=== PATIENT | female | born 1980 | race Two or more races ===

== ENCOUNTER 2024-11-25 22:25 | Emergency (ER) | payer OTHER, SELFPAY ==
--- NOTE | 2024-11-25 22:28 | PD.EDADULT ---
ED General RME/HPI General Chief complaint: General Adult/Misc Complain Stated complaint: J TUBE NOT FUNCTIONING Time Seen by Provider: 11/25/24 22:27 Arrival date/time: 11/25/24 22:25 RME / HPI RME / HPI narrative: 44-year-old female patient with history of congenital pyloric stenosis, hiatal hernia, n.p.o., on J-tube feeding, came in for nonfunctioning J-tube. Patient also had gastric tube for draining purposes. According to the EMS, patient j-tube start not working few hours ago. Patient is denying any complaints. Procedure was done in [facility]. Related Data Allergies Allergy/AdvReac Type Severity Reaction Status Date / Time No Known Allergies Allergy Verified 11/25/24 22:58 Review of Systems Review of Systems Narrative Review of Systems: Review of system reviewed and within normal limits except mentioned in HPI ED Exam Narrative Physical exam: VITAL SIGNS: Reviewed. GENERAL APPEARANCE: Alert and interactive, follows commands, no acute distress, HEAD AND FACE: Non-traumatic. ENT: PERRL, pink conjunctivitis, eyelid no trauma, Mucous membrane moist. NECK: Supple, nontender, no nuchal rigidity. CHEST: No tenderness, no crepitus, no paradoxical movement, no retractions. LUNGS: Clear, well ventilated, symmetric, no rales, no wheezing, no ronchi, no stridor, good breath sounds bilaterally. HEART: Regular rate, regular rhythm, no murmur, no gallops. ABDOMEN: Soft, positive bowel sounds, nondistended, no guarding, G/J-tube intact, nonfunctioning J tube , no rebound, no masses, RECTAL: Deferred. GENITAL: Deferred. NEUROLOGICAL: Gross motor function intact sensory function intact, Appropriate for age. MUSCULOSKELETAL: low back nontender, full range of motion. EXTREMITIES: Nontender, full range of motion. SKIN: Color pink, dry, no rash, no lacerations, no abrasions, no contusions. LYMPHATICS: Deferred. Course Quality Measures none Orders Category Date Time Status CBC [CBC] Stat Lab 11/25/24 23:04 Ordered CMP [Comprehensive Metabolic Panel] Stat Lab 11/25/24 23:04 Ordered PTT [Partial Thromboplastin Time] Stat Lab 11/25/24 23:04 Ordered Dextrose 5%-0.45% Ns [D5-1/2Ns] 1,000 ml Med 11/25/24 23:05 Ordered IV 125 mls/hr Vital Signs Vital signs: Vital Signs Temperature 98.5 F 11/25/24 22:45 Pulse Rate 116 H 11/25/24 22:45 Respiratory Rate 18 11/25/24 22:45 Blood Pressure 107/78 11/25/24 22:45 Pulse Oximetry (%) 99 11/25/24 22:45 Oxygen Delivery Method Room Air 11/25/24 22:45 MDM Patient data External records reviewed:: None Clinical information provided by:: patient and EMS Social determinants that could affect healthcare access:: none Patient has the following chronic illnesses:: Continual pyloric stenosis, hiatal hernia, n.p.o. How is presenting disease/condition affected by chronic disease/condition?: exacerbated by Evaluation data The following diagnostics were reviewed and interpreted by me:: lab results Lab and/or radiology exams considered but not ordered:: None Interpretation Summary: Pending results Medications Medications considered but not ordered:: None Medication administrations:: Medication Administration History Dextrose/Sodium Chloride (D5-1/2ns) 1,000 mls @ 125 mls/hr IV .Q8H TIANA Stop: 12/25/24 23:04 D5 NS, and Pepcid IV Consultations Consultation(s) initiated? (list below): Yes Consultation #1 (Physician, Specialty, Details): Spoke with Dr. Stephens, GI specialist on-call, thank you Dr. Stephens Diagnosis Differential Diagnosis ED Complaint MDM: J tube malfunction Most likely diagnosis given after review of the tests above:: J tube malfunction Admission Indicated Admission indicated?: not indicated Explain why admission is indicated or not indicated:: None Admission Request Was there a request for admission?: No Disposition Plan Disposition Plan: other (specify) (Pending final disposition) Medical Decision Making MDM Narrative MDM Narrative: 44-year-old female patient with history of congenital pyloric stenosis, hiatal hernia, n.p.o., on J-tube feeding, came in for nonfunctioning J-tube. Patient also had gastric tube for draining purposes. According to the EMS, patient j-tube start not working few hours ago. Patient is denying any complaints. Procedure was done in [facility]. I tried to flush the J-tube with no success. Spoke with Dr. Stephens,, GI specialist on-call, told me to leave the patient in the emergency room for him to take care the patient tomorrow morning. Care transferred to Dr Cherry 1115 mp for final disposition Differential Diagnosis Differential Diagnosis: J tube malfunction Discharge Plan Problem List Clinical Impression: Malfunction of jejunostomy tube Patient/Caregiver Discharge Instructions Print Language: [place]
[2024-11-25 22:32] VITALS: PULSE 120; RESP 18; O2SAT 99; BMI 19.2
[2024-11-25 22:45] VITALS: BP 107/78; PULSE 116; RESP 18; TEMP 36.9; O2SAT 99
--- NOTE | 2024-11-25 22:59 | PC.NURSE ---
Addendum entered by Stephanie Zamudio RN 11/25/24 23:00: Caregiver from [facility] at the [facility] at bedside. Original Note: Caregiver from [facility] at the [facility] at bedside.
--- NOTE | 2024-11-25 23:02 | PC.NURSE ---
Director Of Business Development received a call from pt's sister, who is also pt's conservator, requesting an update on pt's status and plan of care, update provided. Pt's sister requesting pt receive IVF and antacid medication intravenously d/t pt being unable to receive medication through J-tube, notified of sister's requests.
[2024-11-25] MEDS: FAMOTIDINE INJ 10 MG/ML VIAL 2 ML 20 MG IVP (23:23)
[2024-11-25] MEDS: DEXTROSE 5%-0.45% NS 1,000 ML 125 ML IV (23:24)
--- NOTE | 2024-11-25 23:35 | PD.EDADDENDU ---
Emergency Room Addendum Addendum Narrative: 2300: Care assumed from the midlevel provider. Past medical, surgical, social and family history reviewed. Vitals and home medications reviewed. Results and treatment plan discussed. I will assume the care of the patient at this time and will follow the patient, pending final disposition. Dr. Stephens, gastroenterology, was consulted and will see the patient in the morning to unclog the J-tube. 0600: Patient signed out to oncoming provider in stable condition, pending gastroenterology definitive management and final disposition.
[2024-11-25 23:36] LABS: Basophils # (Auto) 0.1 Thou/mm3 (0.0-0.2); Basophils % (Auto) 1 % (0-2.5); Eosinophils # (Auto) 0.1 Thou/mm3 (0.0-0.5); Eosinophils % (Auto) 1 % (0-10); Hematocrit 36.3 % (36.0-46.0); Hemoglobin 13.3 g/dL (12.0-16.0); Immature Granulocytes % (Auto) 0 % (0-0); Immature Granulocytes Auto 0.04 Thou/mm3 (0.00-0.00); Lymphocytes # (Auto) 1.8 Thou/mm3 (1.0-4.8); Lymphocytes % (Auto) 17 % (10-50); Mean Corpuscular HGB Conc 36.6 g/dl (31.0-37.0); Mean Corpuscular Hemoglobin 33.3 pg (25.0-35.0); Mean Corpuscular Volume 91 fL (80-100); Monocytes # (Auto) 0.9 Thou/mm3 (0.0-0.8); Monocytes % (Auto) 8 % (0-12); Neutrophils # (Auto) 7.6 Thou/mm3 (1.8-7.7); Neutrophils % (Auto) 73 % (37-80); Nucleated Red Blood Cell # 0.24 Thou/mm3 (0.00-0.00); Nucleated Red Blood Cell % 2 /100 WBC (0); Platelet Count 638 Thou/mm3 (140-440); RDW Standard Deviation 50.4 fL (36.4-46.3); White Blood Count 10.4 Thou/mm3 (3.6-11.0)
[2024-11-26] VITALS (10 sets, daily range): BP systolic 90–121; BP diastolic 66–89; PULSE 88–109; RESP 15–18; TEMP 34.7–37.2; O2SAT 98–100
[2024-11-26 00:59] LABS: Partial Thromboplastin Time 21.8 Seconds (22.0-36.0)
[2024-11-26 01:05] LABS: Alanine Aminotransferase 10 U/L (10-49); Albumin, Serum 4.7 gm/dL (3.5-5.0); Albumin/Globulin Ratio 1.5 (1.2-2.2); Alkaline Phosphatase 68 U/L (46-116); Anion Gap 10 (7-16); Aspartate Amino Transferase 15 U/L (0-34); BUN/Creatinine Ratio 16 Ratio (12-20); Bilirubin,Total 0.3 mg/dL (0.3-1.2); Blood Urea Nitrogen 27 mg/dL (9-23); Calcium 10.2 mg/dL (8.3-10.6); Calcium (Corrected) 10.2 mg/dL (8.5-10.1); Carbon Dioxide 29.9 mMol/L (20.0-31.0); Chloride 99 mMol/L (98-107); Creatinine (Component) 1.7 mg/dL (0.6-1.3); Estimated Creatinine Clearance 31.1 mL/min (>60); Globulin 3.1 gm/dL (2.3-3.5); Glucose 132 mg/dL (74-106); Osmolality,Calculated 284 (275-295); Potassium 4.2 mMol/L (3.4-5.1); Sodium 139 mMol/L (136-145); Total Protein 7.8 gm/dL (5.7-8.2); eGFR 37 See Note
--- NOTE | 2024-11-26 06:25 | EDNOTE_ITS ---
Emergency Room Addendum <Suzan Perry - Last Filed: 11/26/24 15:29> Addendum Narrative: 0600: Care assumed from Dr. Milton, the previous shift emergency physician. Past medical, surgical, social and family history reviewed. Vitals and home medications reviewed. I will assume the care of the patient at this time, pending consultation with GI. Please refer to the emergency department record for history and examination from initial visit.? EMS notes reviewed by me. Nursing notes reviewed by me. Vital signs reviewed by me. [facility] records reviewed by me. I reviewed pmhx and medication list from [facility]. [facility] records reviewed by me. Per EMR review, patient has no previous visits. <Zana Astudillo MD - Last Filed: 11/26/24 17:34> Addendum Narrative: 0600: Care assumed from Dr. Milton, the previous shift emergency physician. Past medical, surgical, social and family history reviewed. Vitals and home medications reviewed. I will assume the care of the patient at this time, pending consultation with GI. Please refer to the emergency department record for history and examination from initial visit.? EMS notes reviewed by me. Nursing notes reviewed by me. Vital signs reviewed by me. [facility] records reviewed by me. I reviewed pmhx and medication list from [facility]. [facility] records reviewed by me. Per EMR review, patient has no previous visits. The patient was signed out to me at 6:00 this morning by . He has arranged to have Dr. Stephens to see the patient this morning. He added that he had already spoken to Dr. Stephens and he agreed to do so. 3 PM, Dr. Stephens has been here for about an hour and trying to flush the tube without success and he said that the patient will need a new tube but unfortunately we do not have that kind of tube that has both gastrostomy and jejunostomy components. And so he recommended the patient be transferred back to [place] or other facility to see a GI specialist with that kind of tube availability. In the ER, we have kept the patient n.p.o. and IV fluid D5 half-normal saline at 125 mL/h. 5:30 PM, I spoke to and discussed with , from [facility]. He accepted the patient transfer there. We will transfer the patient to ambulance. The exact time of transfer is unknown. The patient is stable for transfer. Diagnosis: Clogged g/j combo tube
--- NOTE | 2024-11-26 06:50 | PC.NURSE ---
Pt's sister updated an pt's status and current plan of care by telephone.
[2024-11-26] MEDS: DEXTROSE 5%-0.45% NS 1,000 ML 125 ML IV ×2 (07:25→16:49)
--- NOTE | 2024-11-26 15:30 | PC.NURSE ---
[facility] transfer nurse states they are only taking trauma, stemi, and stroke patients at this time
--- NOTE | 2024-11-26 15:30 | PC.NURSE ---
transfer initiated for gi services for this patient, transfer center from [facility] contacted and all paper work faxed talked rosalio.
--- NOTE | 2024-11-26 15:34 | PC.NURSE ---
dr felix giving report to [facility] transfer nurse
--- NOTE | 2024-11-26 15:44 | PC.NURSE ---
Verbal consent for transfer to GI specialist got from sister who is emergency contact. Consent signed by myself and MARLON Kenyon.
--- NOTE | 2024-11-26 17:29 | PC.NURSE ---
ACCETED AT [facility] DR GALO WAITING FOR A BED
--- NOTE | 2024-11-26 18:45 | PC.NURSE ---
-750ml output from gastric tube.
[2024-11-27] VITALS (8 sets, daily range): BP systolic 91–104; BP diastolic 62–80; PULSE 79–93; RESP 17–19; TEMP 36.4–36.9; O2SAT 100
[2024-11-27] MEDS: DEXTROSE 5%-0.45% NS 1,000 ML 125 ML IV ×4 (00:14→21:51)
--- NOTE | 2024-11-27 07:04 | PC.NURSE ---
PRASHANTH FROM THE [facility] CALLED AND THEIR HOSP[facility] [place] DO[facility] NOT HAVE ANY OPEN BEDS. PRASHANTH STATED THEY WILL GIVE US A CALL LATER AFTER THE FACILITY DOES THEIR BED MEETING.
--- NOTE | 2024-11-27 07:13 | PC.NURSE ---
Pt. laying in bed in room 8, [facility] care take is bedside, pt. is from [facility] in [place], Fabiana states that pt. is new to their facility, pt. states she lives in [place], pt. states her dad in her house, pt. states he had oxygen and from a heart attack. Pt. states she used to walk and doesn't know why she can't walk anymore. Fabiana states pt. walks but gets dizzy. Pt. has a G tube/ J tube and tube site is clean dry and intact not draining any fluid, tube is connected to a bag bedside and tube/bag have green liquid with some particles in it. In the bag there is 400 mls of green liquid. Pt. is able to state her name and but unable to state where she is.
--- NOTE | 2024-11-27 08:28 | PC.CC ---
Addendum entered by Wilma Osman RN 11/27/24 10:38: Spoke to Etelvina at [facility] transfer center, she states pt can not be transferred to ER because they are impacted, she states they are trying to get patients dc to get patient a room and they will call and update us, Charge nurse made aware of sisters request and the plan Addendum entered by Wilma Osman RN 11/27/24 10:23: Spoke to patients sister who is requesting to not try other places for transfer and that she wants patient transferred to [facility]. Addendum entered by Wilma Osman RN 11/27/24 09:27: Patients chart faxed to [facility] and VM left for transfer center while waiting on [facility] to call back Original Note: Spoke to Radha at [facility], she states they still do not have a bed available, asked if we could possibly transfer ER to ER since the patient is still currently in the ER. She states she will discuss with her RN and philippe back. RN emphasized patient wait time in the ER and encouraged to find a bed to decrease patient wait time.
--- NOTE | 2024-11-27 17:00 | PC.LAC ---
[facility] transfer nurse contacted to ask for an update, sheldon villalba from transfer nurse states they have no bed in [facility] they are at capacity, all their hospitals [facility] at capacity
--- NOTE | 2024-11-27 17:24 | PC.NURSE ---
talked to sister jovanny she was updated on the transfer status, she is ok with her sister going [facility] another [facility]
--- NOTE | 2024-11-27 17:28 | PD.EDADDENDU ---
Emergency Room Addendum Addendum Narrative: The patient was signed out to me from at 6:00 this morning still pending a successful and transfer to [facility] to see a GI specialist for G-tube and J-tube replacement. However according to the transfer nurse, it appears that [facility] is still having no bed available. So we are still waiting for [facility] and we will also initiate another GI transfer. Head nurse Geovanna is aware and she is working on the transfer. Waiting for transfer, the patient had access to IV fluid, nursing care [id number] and she is N.p.o. IV fluid 6 PM still pending successful transfer the patient is stable and is now signed out to Diagnosis: G-tube and J-tube combo tube malfunction Condition: Stable pending transfer success
--- NOTE | 2024-11-27 17:35 | PC.CC ---
Addendum entered by Raul Langford 11/27/24 18:45: 1841-Call from [facility] with [facility] has declined transfer request due to capability. Addendum entered by Raul Langford II 11/27/24 18:17: 1814-Call from [facility] with [facility], clinical packet not received, re-faxed at time. Addendum entered by Raul Langford 11/27/24 17:56: 1741-Call to [facility] transfer center-ASW spoke with Rose Marie. Request imaging if available to be pushed, and request transfer packet to be faxed. ASW facilitated consult with ED attending Dr. Astudillo for clinical. 1747-Call fro [facility] with [facility] transfer center-facilitated consult with ED attending Dr. Astudillo. Original Note: HLOC transfer for GI services for J-tube malfunction. Pt tentatively accepted to [facility], pending bed availability, but delayed due to capacity. ED Charge Geovanna has spoken with pts sister Leni Smith [phone], who expressed consent for HLOC request to be expanded. 1722-Call to [facility]-request that pts face sheet be faxed to [phone].
--- NOTE | 2024-11-27 18:16 | PD.EDADDENDU ---
Emergency Room Addendum Addendum Narrative: 1800: Care assumed from Dr. Astudillo, the previous shift emergency physician. Past medical, surgical, social and family history reviewed. Vitals and home medications reviewed. Results and treatment plan discussed. I will assume the care of the patient at this time and will follow the patient, pending transfer/bed availability at [facility]. Please refer to the emergency department record for history and examination from initial visit. The patient was placed in ED observation care at 11/27/24 at 1800 hours. The patient was placed in ED observation care because of pending bed availability at [facility]. The patients past medical history, social history, and family history were reviewed. The plan of care will include serial examinations. 0600: Care signed out to Dr. Disla (emergency physician). Past medical, surgical, social and family history reviewed. Vitals and home medications reviewed. Results and treatment plan discussed. They will assume the care of the patient at this time and will follow the patient, pending transfer/bed availability at [facility]. At this time, observation has ended.
--- NOTE | 2024-11-27 18:22 | PC.NURSE ---
a total of 700mls, green bile liquid emptied from bag at bedside that is draining from J tube.
[2024-11-27] MEDS: SODIUM CHLORIDE 0.9% 500 ML 500 ML 999 ML IV (18:24)
--- NOTE | 2024-11-27 20:15 | PC.NURSE ---
Pt brief changed; girish-care provided.
--- NOTE | 2024-11-27 20:25 | PC.NURSE ---
[facility] TRANSFER NURSE INFORMED ME THAT THEY ARE NOT SURE IF THEY WILL HAVE TOOLS TO FIX THE PROBLEM UNTIL THEY TALK TO IR IN AM.
[2024-11-28 00:06] VITALS: BP 101/81; PULSE 78; RESP 19; O2SAT 100
[2024-11-28] MEDS: DEXTROSE 5%-0.45% NS 1,000 ML 125 ML IV (01:09)
--- NOTE | 2024-11-28 01:43 | PC.NURSE ---
Pt's brief changed, girish-care provided. Caregiver from facility at bedside.
[2024-11-28 04:00] VITALS: BP 88/62; PULSE 69; RESP 18; O2SAT 99
--- NOTE | 2024-11-28 06:50 | EDNOTE_ITS ---
Emergency Room Addendum <Suzan Perry - Last Filed: 11/28/24 14:50> Addendum Narrative: 0600: Care assumed from Dr. Milton, the previous shift emergency physician. Past medical, surgical, social and family history reviewed. Vitals and home medications reviewed. I will assume the care of the patient at this time, pending transfer for GI services. Patient had been accepted at [facility] on 11/26/2024 and at this time pending bed availability. Please refer to the emergency department record for history and examination from initial visit.? Nursing notes reviewed by me. Vital signs reviewed by me. [facility] medical records reviewed by me. I reviewed initial ED visit H&P on 11/25/2024. 0740: I spoke with transfer nurse at [facility] and discussed J-tube model. 0840: Patient has been accepted for transfer by Dr. Richmond, ER to ER at [facility]. 1230: EMS here to transport patient to [facility]. <Jovanna Disla MD - Last Filed: 12/01/24 13:10> Addendum Narrative: 0600: Care assumed from Dr. Milton, the previous shift emergency physician. Past medical, surgical, social and family history reviewed. Vitals and home medications reviewed. I will assume the care of the patient at this time, pending transfer for GI services. Patient had been accepted at [facility] on 11/26/2024 and at this time pending bed availability. Please refer to the emergency department record for history and examination from initial visit.? Nursing notes reviewed by me. Vital signs reviewed by me. [facility] medical records reviewed by me. I reviewed initial ED visit H&P on 11/25/2024. 0740: I spoke with transfer nurse at [facility] and discussed GJ-tube brand. 0840: Patient has been accepted for transfer by Dr. Richmond, ER to ER at [facility]. 1230: EMS here to transport patient to [facility].
[2024-11-28 06:57] VITALS: BP 103/69; PULSE 79; RESP 17; O2SAT 100
--- NOTE | 2024-11-28 07:34 | PC.NURSE ---
PT RESTING, CAREGIVER FROM FACILITY AT BEDSIDE. VSS PT MAINTAINS SOFT BP. DENIES ANY PAIN OR DISCOMFORT AT THIS TIME. CALL ANGELES IN REACH.
[2024-11-28 07:35] VITALS: BP 102/68; PULSE 75; RESP 18; TEMP 36.3; O2SAT 100
--- NOTE | 2024-11-28 09:17 | PC.CM ---
Addendum entered by Liz Lopez RN 11/28/24 10:08: 1008 called [facility], spoke to Rose Marie and informed [facility] picker time is 1230. Addendum entered by Liz Lopez RN 11/28/24 10:02: 1005 sent paperwork to [facility] through [employer]. Called [facility], spoke to [facility] and setup the transport. support services manager time is 1230. Original Note: 1178 transfer packet is complete including all signatures. There was no imaging done, so no CD is inside the packet. Notified charge nurse of the transfer packet and number to call for report. [id number] spoke to Zoila at [facility] that pt is accepted at [facility] for ED to ED transfer. Accepted by Dr. Britt Richmond. Number to call for report is [phone].
[2024-11-28 10:01] VITALS: BP 98/73; PULSE 84; RESP 18; TEMP 36.4; O2SAT 100
[2024-11-28 11:21] VITALS: BP 98/63; PULSE 78; RESP 17; O2SAT 99
== END 2024-11-28 12:00 | disposition short-term general hospital (02) ==
PROVIDERS: Nurse Practitioner Family; Emergency Provider Emergency Medicine; PCP Hospitalist
DX: K94.13 Enterostomy malfunction (principal)
CPT/HCPCS: 36415; 80053; 85025; 85730; 96361; 96374; 99285; J3490; J7040; J7042

== ENCOUNTER → 2025-05-07 | Outpatient (CLI) | payer MEDICARE, OTHER, SELFPAY ==
[2025-05-07 20:32] LABS: Basophils % (Auto) 0 % (0-2.5); Eosinophils # (Auto) 0.1 Thou/mm3 (0.0-0.5); Eosinophils % (Auto) 2 % (0-10); Hematocrit 34.1 % (36.0-46.0); Hemoglobin 12.7 g/dL (12.0-16.0); Immature Granulocytes % (Auto) 0 % (0-0); Immature Granulocytes Auto 0.02 Thou/mm3 (0.00-0.00); Lymphocytes % (Auto) 25 % (10-50); Mean Corpuscular HGB Conc 37.2 g/dl (31.0-37.0); Mean Corpuscular Hemoglobin 32.2 pg (25.0-35.0); Mean Corpuscular Volume 86 fL (80-100); Monocytes # (Auto) 0.7 Thou/mm3 (0.0-0.8); Monocytes % (Auto) 9 % (0-12); Neutrophils # (Auto) 5.1 Thou/mm3 (1.8-7.7); Neutrophils % (Auto) 64 % (37-80); Nucleated Red Blood Cell % 0 /100 WBC (0); Platelet Count 229 Thou/mm3 (140-440); RDW Standard Deviation 35.8 fL (36.4-46.3); Red Blood Count 3.95 Miln/mm3 (4.00-5.20)
[2025-05-07 20:50] LABS: Alanine Aminotransferase 51 U/L (10-49); Albumin/Globulin Ratio 1.8 (1.2-2.2); Alkaline Phosphatase 96 U/L (46-116); Anion Gap 7 (7-16); Aspartate Amino Transferase 33 U/L (0-34); BUN/Creatinine Ratio 33 Ratio (12-20); Bilirubin,Total 0.3 mg/dL (0.3-1.2); Blood Urea Nitrogen 30 mg/dL (9-23); Calcium 8.9 mg/dL (8.3-10.6); Calcium (Corrected) 8.9 mg/dL (8.5-10.1); Carbon Dioxide 37.7 mMol/L (20.0-31.0); Chloride 92 mMol/L (98-107); Creatinine (Component) 0.9 mg/dL (0.6-1.3); Globulin 2.2 gm/dL (2.3-3.5); Glucose 106 mg/dL (74-106); Osmolality,Calculated 280 (275-295); Potassium 3.4 mMol/L (3.4-5.1); Sodium 137 mMol/L (136-145); Total Protein 6.2 gm/dL (5.7-8.2); eGFR > 60 See Note
== END | disposition home or self-care (01) ==
PROVIDERS: PCP Hospitalist; Referring Provider Hospitalist; Visit Provider Hospitalist
DX: K31.84 Gastroparesis (principal); N18.9 Chronic kidney disease, unspecified; K44.9 Diaphragmatic hernia without obstruction or gangrene; Q90.9 Down syndrome, unspecified
CPT/HCPCS: 36415; 80053; 85025

== ENCOUNTER → 2025-05-31 | Outpatient (CLI) | payer MEDICARE, OTHER, MEDICAID, SELFPAY | END | disposition home or self-care (01) | PROVIDERS: Referring Provider Hospitalist; Visit Provider Hospitalist | DX: K31.84 Gastroparesis (principal); Q40.0 Congenital hypertrophic pyloric stenosis; Q90.9 Down syndrome, unspecified | CPT/HCPCS: 87070; 87077; 87186; 87205 ==

== ENCOUNTER → 2025-06-07 | Outpatient (CLI) | payer MEDICARE, OTHER, SELFPAY | END | disposition home or self-care (01) | LOC: SLDO 12:35 | PROVIDERS: Referring Provider Hospitalist; Visit Provider Hospitalist | DX: Z01.84 Encounter for antibody response examination (principal) | CPT/HCPCS: 86735; 86762; 86765 ==

== ENCOUNTER → 2025-08-17 | Outpatient (CLI) | payer MEDICARE, OTHER, SELFPAY ==
[2025-08-17 17:35] LABS: Basophils # (Auto) 0.1 Thou/mm3 (0.0-0.2); Basophils % (Auto) 1 % (0-2.5); Eosinophils # (Auto) 0.2 Thou/mm3 (0.0-0.5); Eosinophils % (Auto) 2 % (0-10); Hematocrit 37.0 % (36.0-46.0); Hemoglobin 12.9 g/dL (12.0-16.0); Immature Granulocytes Auto 0.05 Thou/mm3 (0.00-0.00); Lymphocytes # (Auto) 1.7 Thou/mm3 (1.0-4.8); Lymphocytes % (Auto) 18 % (10-50); Mean Corpuscular HGB Conc 34.9 g/dl (31.0-37.0); Mean Corpuscular Hemoglobin 32.6 pg (25.0-35.0); Mean Corpuscular Volume 93 fL (80-100); Monocytes # (Auto) 0.8 Thou/mm3 (0.0-0.8); Monocytes % (Auto) 8 % (0-12); Neutrophils # (Auto) 7.1 Thou/mm3 (1.8-7.7); Neutrophils % (Auto) 72 % (37-80); Nucleated Red Blood Cell # 0.00 Thou/mm3 (0.00-0.00); Nucleated Red Blood Cell % 0 /100 WBC (0); Platelet Count 222 Thou/mm3 (140-440); RDW Standard Deviation 40.6 fL (36.4-46.3); Red Blood Count 3.96 Miln/mm3 (4.00-5.20); White Blood Count 9.9 Thou/mm3 (3.6-11.0)
[2025-08-17 17:54] LABS: Alanine Aminotransferase 39 U/L (10-49); Albumin, Serum 4.0 gm/dL (3.5-5.0); Albumin/Globulin Ratio 1.8 (1.2-2.2); Alkaline Phosphatase 95 U/L (46-116); Anion Gap 11 (7-16); Aspartate Amino Transferase 30 U/L (0-34); BUN/Creatinine Ratio 29 Ratio (12-20); Bilirubin,Total 0.2 mg/dL (0.3-1.2); Blood Urea Nitrogen 26 mg/dL (9-23); Calcium 8.5 mg/dL (8.3-10.6); Calcium (Corrected) 8.5 mg/dL (8.5-10.1); Carbon Dioxide 26.5 mMol/L (20.0-31.0); Chloride 102 mMol/L (98-107); Creatinine (Component) 0.9 mg/dL (0.6-1.3); Globulin 2.2 gm/dL (2.3-3.5); Glucose 100 mg/dL (74-106); Osmolality,Calculated 282 (275-295); Potassium 4.3 mMol/L (3.4-5.1); Sodium 139 mMol/L (136-145); Total Protein 6.2 gm/dL (5.7-8.2); eGFR > 60 See Note
== END | disposition home or self-care (01) ==
PROVIDERS: PCP Hospitalist; Referring Provider Hospitalist; Visit Provider Hospitalist
DX: N18.9 Chronic kidney disease, unspecified (principal); K31.84 Gastroparesis; D63.8 Anemia in other chronic diseases classified elsewhere; Q90.9 Down syndrome, unspecified
CPT/HCPCS: 36415; 80053; 85025

== ENCOUNTER 2025-08-26 20:09 | Inpatient (IN) | payer MEDICARE, OTHER, SELFPAY ==
[2025-08-26 20:16] VITALS: BMI 30.2
[2025-08-26 20:17] VITALS: BP 99/73; PULSE 109; RESP 19; TEMP 36.6; O2SAT 94
[2025-08-26 20:23] VITALS: PULSE 86; O2SAT 99
--- NOTE | 2025-08-26 20:29 | PD.EDABDPN ---
ED Abdominal Pain RME/HPI General Chief Complaint: Abdominal Pain Stated complaint: ABD PAIN Time seen by provider: 08/26/25 20:33 Arrival date/time: 08/26/25 20:09 RME / HPI RME / HPI narrative: Dr. Alston?s Main ED Evaluation: Severely debilitated down syndrome 45yo female with history of gastroparesis, chronic constipation, GERD presenting with ongoing abdominal pain x 1 week. Describes her RUQ/flank pain as sharp and is relatively constant. Notes several bouts of nonbloody emesis. She has an indwelling G- and J-tube. No reported abdominal distention, fever, or chills. Several attempts were made to stimulate bowel movement by administering rectal suppositories without success. Related Data Allergies Allergy/AdvReac Type Severity Reaction Status Date / Time No Known Allergies Allergy Verified 11/25/24 22:58 Review of Systems Review of Systems Systems Reviewed: All systems reviewed, normal except as documented ED Exam Narrative Physical exam: GENERAL APPEARANCE: alert and oriented x 4, complains of right-sided abdominal pain, noted intermittent oxygen desaturation, in mild distress HEENT: Normocephalic, atraumatic; pupils equal, round, reactive to light; EOMI; mucous membranes pink, moist; oropharynx clear NECK: Supple LUNGS: CTABL; no wheezes, no rales, no rhonchi HEART: Regular rate, regular rhythm; normal S1, S2; no murmurs ABDOMEN: non distended; quiet BS; soft, RUQ tenderness that extends to the right flank, no gross peritoneal findings EXTREMITIES: atraumatic; no edema NEUROLOGIC: awake; alert and oriented x4; cranial nerves II-XII grossly intact; no focal sensory or motor deficits PSYCHIATRIC: appropriate mood and affect SKIN: warm, dry, normal color; no rashes Course Quality Measures none Orders Category Date Time Status EKG (ED ONLY) *Do not use* NOW Care 08/26/25 20:37 Completed Soap Suds [Enema Administration] NOW Care 08/27/25 02:[address] abdomen pelvis wo con Stat Exams 08/26/25 23:25 Taken EKG (ED Only) Stat Exams 08/26/25 20:37 Draft XR chest 1V portable Stat Exams 08/27/25 02:43 Taken B-Type Natriuretic Peptide Stat Lab 08/26/25 21:25 Completed Blood Culture (Lab) Stat Lab 08/27/25 03:38 Received CBC Stat Lab 08/26/25 21: Completed Comprehensive Metabolic Panel Stat Lab 08/26/25 21: Completed Drug Screen,Urine Stat Lab 08/26/25 21:45 Completed Lactic Acid [Lactate (Lactic Acid)] Stat Lab 08/27/25 03:42 Completed Lipase Stat Lab 08/26/25 21: Completed Magnesium Stat Lab 08/26/25 21: Completed Partial Thromboplastin Time Stat Lab 08/26/25: Completed Prothrombin Time with INR Stat Lab 08/26/25: Completed Urinalysis, C/S if Indicated Stat Lab 08/26/25 21:45 Completed Diazepam Inj [Valium Inj] Med 08/26/25 23:40 Discontinued 2.5 mg IVP X1 ONE Sodium Chloride 0.9% 1000 ml [Ns] 1,000 ml Med 08/26/25 23:40 Discontinued IV 999 mls/hr Vital Signs Vital signs: Vital Signs Temperature 97.9 F 08/26/25 20:17 Pulse Rate 109 H 08/26/25 20:17 Respiratory Rate 19 08/26/25 20:17 Blood Pressure 99/73 08/26/25 20:17 Pulse Oximetry (%) 94 L 08/26/25 20:17 Oxygen Delivery Method Room Air 08/26/25 20:17 Abdominal Pain MDM MDM Narrative MDM Narrative:: Scribe Attestation: 08/26/25 - Radha Clinton am scribing for and in the presence of Dr. Alston. Severely debilitated down syndrome 45yo female with history of gastroparesis, chronic constipation, GERD presenting with ongoing abdominal pain x 1 week. Describes her RUQ/flank pain as sharp and is relatively constant. Please see PE findings. Lab markers demonstrated elevated WBC count 17.2, no left shift or bandemia. Chemistries demonstrate K 3.0, elevated creatinine 1.9, reduction of GFR from >60 to 32 (suggests SAURAV), elevated Mg, Lipase 60, LFTs within normal limits. UA without evidence of infection. Patient was hydrated with saline and underwent CT abdomen pelvis which demonstrated moderate-high stool burden without obstructive findings. No signs of intestinal inflammation. Rectal exam without evidence of fecal impaction. Will administer soap suds enema and consider adm for bowel cleansing and general hydration. Dx: SAURAV, dehydration, constipation Patient data External records reviewed:: [facility] previous records (Per chart review, patient was seen here on 11/25/24 for malfunction of jejunostomy tube.) and EMS form Clinical information provided by:: patient Social determinants that could affect healthcare access:: none Patient has the following chronic illnesses:: congenital pyloric stenosis, hiatal hernia, n.p.o., on J-tube feeding How is presenting disease/condition affected by chronic disease/condition?: caused by Evaluation data The following diagnostics were reviewed and interpreted by me:: lab results, radiology exam(s) and EKG tracing(s) Lab and/or radiology exams considered but not ordered:: none Interpretation Summary: EKG done at 2141, sinus tachycardia, rate of 100, no acute pathological ST segment changes, no ectopy, normal intervals, ?P mitrale, normal axis, according to my interpretation. -------- Telerad Preliminary Report Draft Patient: REBECCA RUBIO [facility] Record#: [id number] Birthdate: 1980 Age/Sex: 45 / F [facility] Attending Dr: Ordering Physician: Date of Service: Procedure(s): Accession Number(s): cc: ~ CT scan of the abdomen and pelvis without intravenous contrast (axial sections with sagittal and coronal reformats) August 27, 2025 0018 hours Clinical History: Rule out colitis. No prior study is available for comparison. Findings: The evaluation is slightly limited due to motion artifact. The lung bases are clear. Moderate sized hiatal hernia noted. The gallbladder is not visualized. The liver, pancreas, spleen, kidneys and adrenals are unremarkable on this noncontrast study. Percutaneous gastrojejunostomy tube noted. No evidence of bowel obstruction. A moderate amount of fecal material is present in the colon. The appendix is within normal limits (coronal images 52-62/123). There is no mesenteric or retroperitoneal adenopathy. The urinary bladder is unremarkable. There is no free fluid or free air. The osseous structures are unremarkable. Impression: Constipation. Recommend clinical correlation. No evidence of colitis, bowel obstruction, free air. Other findings as described above. Report Electronically Signed By: Antoni Sena 08/27/2025 1:22:35 AM [EST Medications / Prescriptions Medications or Prescriptions considered but not ordered:: none Medication administrations:: Medication Administration History Discontinued Medications Diazepam (Diazepam Inj 5 Mg/Ml Vial 2 Ml) 2.5 mg IVP X1 ONE Stop: 08/26/25 23:41 Last Admin: 08/26/25 23:47 Dose: Not Given Documented By: CCT Non-Admin Reason: Cancelled by Provider Sodium Chloride (Ns) 1,000 mls @ 999 mls/hr IV .Q1H1M ONE Stop: 08/27/25 00:40 Last Infusion: 08/27/25 01:25 Dose: Infused Documented By: Admin: 08/27/25 00:01 Dose: 999 mls/hr Documented By: CCT see above Consultations Consultation(s) initiated? (list below): Yes Consultation #1 (Physician, Specialty, Details): Discussed case with the resident physician, attending Dr. Michael from Hospitalist service regarding admission. Discussed patients ED course, exam findings, labs, and radiology results. The Hospitalist agrees to accept the patient for admission. Time: 05:01 Diagnosis Differential diagnosis abdominal pain: constipation, diverticulitis, gastroenteritis, pancreatitis and small bowel obstruction Most likely diagnosis given after review of the tests above:: see clinical impression below Admission Indicated Admission indicated?: indicated Admission Request Was there a request for admission?: Yes Admission Attestation Admission request attestation: Discussed case with [] from Hospitalist service regarding admission. Discussed patients ED course, exam findings, labs, and radiology results. The Hospitalist [agrees,declines] to accept the patient for admission. Disposition Plan Disposition Plan: Admit Discharge Plan Plan Patient Disposition: Admit Acute Care w/in Hospital Prescriptions/Referrals Referrals: No Primary/Family,Physician [Primary Care Provider] - In 1 week Problem List Clinical Impression: SAURAV (acute kidney injury), Acute dehydration, Constipation Patient/Caregiver Discharge Instructions Print Language: Welsh Stand Alone Forms: [employer] Info., Patient Portal Info Letter
--- NOTE | 2025-08-26 20:37 | EKG_ITS ---
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
[2025-08-26 21:35] LABS: Basophils # (Auto) 0.1 Thou/mm3 (0.0-0.2); Basophils % (Auto) 0 % (0-2.5); Eosinophils # (Auto) 0.0 Thou/mm3 (0.0-0.5); Eosinophils % (Auto) 0 % (0-10); Hematocrit 43.5 % (36.0-46.0); Hemoglobin 15.1 g/dL (12.0-16.0); Immature Granulocytes Auto 0.04 Thou/mm3 (0.00-0.00); Lymphocytes # (Auto) 2.9 Thou/mm3 (1.0-4.8); Lymphocytes % (Auto) 17 % (10-50); Mean Corpuscular HGB Conc 34.7 g/dl (31.0-37.0); Mean Corpuscular Hemoglobin 31.7 pg (25.0-35.0); Mean Corpuscular Volume 91 fL (80-100); Monocytes # (Auto) 1.6 Thou/mm3 (0.0-0.8); Monocytes % (Auto) 9 % (0-12); Neutrophils # (Auto) 12.6 Thou/mm3 (1.8-7.7); Neutrophils % (Auto) 73 % (37-80); Nucleated Red Blood Cell # 0.00 Thou/mm3 (0.00-0.00); Nucleated Red Blood Cell % 0 /100 WBC (0); Platelet Count 293 Thou/mm3 (140-440); RDW Standard Deviation 40.0 fL (36.4-46.3); Red Blood Count 4.76 Miln/mm3 (4.00-5.20); White Blood Count 17.2 Thou/mm3 (3.6-11.0)
[2025-08-26 21:48] VITALS: BP 118/83; PULSE 107; RESP 18; TEMP 36.8; O2SAT 97
[2025-08-26 21:50] LABS: B-Type Natriuretic Peptide < 20 pg/mL (0-100)
[2025-08-26 21:53] LABS: INR 1.1 (0.9-1.3); Partial Thromboplastin Time 25.4 Seconds (22.0-36.0); Prothrombin Time 11.4 Seconds (9.0-12.2)
[2025-08-26 22:02] LABS: Alanine Aminotransferase 57 U/L (10-49); Albumin, Serum 5.0 gm/dL (3.5-5.0); Albumin/Globulin Ratio 1.7 (1.2-2.2); Alkaline Phosphatase 99 U/L (46-116); Anion Gap 17 (7-16); Aspartate Amino Transferase 41 U/L (0-34); BUN/Creatinine Ratio 32 Ratio (12-20); Bilirubin,Total 0.4 mg/dL (0.3-1.2); Blood Urea Nitrogen 60 mg/dL (9-23); Calcium 10.2 mg/dL (8.3-10.6); Calcium (Corrected) 10.2 mg/dL (8.5-10.1); Carbon Dioxide > 40.0 mMol/L (20.0-31.0); Chloride 77 mMol/L (98-107); Creatinine (Component) 1.9 mg/dL (0.6-1.3); Estimated Creatinine Clearance 30.7 mL/min (>60); Globulin 3.0 gm/dL (2.3-3.5); Glucose 97 mg/dL (74-106); Lipase 60 U/L (12-53); Magnesium 2.9 mg/dL (1.6-2.6); Osmolality,Calculated 285 (275-295); Potassium 3.0 mMol/L (3.4-5.1); Sodium 134 mMol/L (136-145); Total Protein 8.0 gm/dL (5.7-8.2); eGFR 32 See Note
[2025-08-26 22:07] LABS: Collection Type, Urine Clean Catch
[2025-08-26 22:12] LABS: Bilirubin,Urine Negative (Negative); Blood,Urine Negative (Negative); Clarity,Urine Clear (Clear/Hazy); Color,Urine Lt-Yellow (Lt Yel-Yel); Culture Indicated,Urine Not Indicated; Glucose, Urine Negative (Negative); Ketones,Urine Negative (Negative); Leukocyte Esterase,Urine Negative (Negative); Nitrite,Urine Negative (Negative); PH,Urine 8.0 (5.0-7.0); Protein,Urine Trace (Neg - Trace); RBC,Urine 5 /hpf (0-3); Specific Gravity,Urine 1.019 (1.001-1.035); Squamous Epithelial Cell,Urine 5 /hpf (0-5); Urobilinogen,Urine Negative mg/dL (0.0-1.0); WBC,Urine 1 /hpf (0-5)
[2025-08-26 22:18] LABS: Amphetamine/Methamp Scrn,U Negative (Negative); Barbiturate Screen,Urine Negative (Negative); Benzodiazepines Screen,Urine Negative (Negative); Benzoylecgonine Screen, Ur Negative (Negative); Fentanyl Screen,Urine Negative (Negative); Opiate Screen,Urine Negative (Negative); THC Screen,Urine Negative (Negative)
--- NOTE | 2025-08-26 23:25 | XR_ITS ---
Examination: CT abdomen and pelvis without contrast. Coronal 3-D reconstructions. Sagittal 2-D reconstructions. Date and time of exam: August 27, 2025, 0019 hours INDICATIONS: Sharp right upper abdominal and flank pain, with vomiting, patient has indwelling gastrostomy and jejunostomy tubes CTDI: vol (mGy): 5.18 DLP: (mGycm): 266 Technique: Axial images of the abdomen have been obtained, 3 mm slice thickness Intravenous contrast material has not been administered. Low dose protocols were performed. One or more of the following dose reduction techniques were used; automated exposure control, adjustment of the mA and/or KV according to patient size, use of iterative reconstruction technique. Findings: Large retrocardiac gastric hernia No visualized liver or splenic lesion Absent gallbladder Percutaneous gastrostomy jejunostomy tube No renal or ureteral calculi No bowel obstruction Aorta normal size Normal appendix Abundant stool in the colon Atrophic uterus Bladder intact Moderate osteopenia IMPRESSION: Large retrocardiac gastric hernia Abundant stool throughout the colon, no obstruction Normal appendix
[2025-08-27] VITALS (9 sets, daily range): BP systolic 90–119; BP diastolic 58–84; PULSE 70–100; RESP 16–20; TEMP 36.1–36.9; O2SAT 94–100; BMI 30.2
[2025-08-27] MEDS: SODIUM CHLORIDE 0.9% 1000 ML 1,000 ML 999 ML IV (00:01)
--- NOTE | 2025-08-27 01:23 | PRELIM_ITS ---
CT scan of the abdomen and pelvis without intravenous contrast (axial sections with sagittal and coronal reformats) August 27, 2025 0018 hours Clinical History: Rule out colitis. No prior study is available for comparison. Findings: The evaluation is slightly limited due to motion artifact. The lung bases are clear. Moderate sized hiatal hernia noted. The gallbladder is not visualized. The liver, pancreas, spleen, kidneys and adrenals are unremarkable on this noncontrast study. Percutaneous gastrojejunostomy tube noted. No evidence of bowel obstruction. A moderate amount of fecal material is present in the colon. The appendix is within normal limits (coronal images 52-62/123). There is no mesenteric or retroperitoneal adenopathy. The urinary bladder is unremarkable. There is no free fluid or free air. The osseous structures are unremarkable. Impression: Constipation. Recommend clinical correlation. No evidence of colitis, bowel obstruction, free air. Other findings as described above. Report Electronically Signed By: Antoni Sena 08/27/2025 1:22:35 AM [EST]
--- NOTE | 2025-08-27 02:43 | XR_ITS ---
EXAMINATION: AP chest single view TECHNIQUE: AP portable upright chest single view Date and time: August 27, 2025, 0245 hours INDICATIONS: Hypoxia this week. FINDINGS: Normal heart size Prominent central pulmonary arteries Subtle opacity in the perihilar basilar regions Prominent osteopenia IMPRESSION: Suspicious for early perihilar bibasilar pneumonia
[2025-08-27 03:46] LABS: Lactate (Lactic Acid) 1.8 mMol/L (0.4-2.0)
--- NOTE | 2025-08-27 05:36 | PD.RESHP ---
Documentation for date of: 08/27/25 HPI History of Present Illness Chief complaint: Constipation History of present illness: This is a 45-year-old female with past medical history of gastroparesis, depression, CKD, anemia of chronic disease, GERD, diaphragmatic hernia, Down syndrome, G-tube, J-tube presented to the ED with complaints of constipation. She is not able to go to poop since last 5 days in spite of using suppositories. She complains of vague abdominal pain on the right lower quadrant. She endorses nausea and vomiting since last 2 days but denies any hematemesis, cough, chest pain, chest tightness and palpitations. She denies any urinary frequency, urgency or burning micturition. At baseline she uses G-tube for feeding and sometimes conscious about urination and sometimes not. She lives at [facility]. Her sister is the decision maker. Today ED visit vitals BP 112/77, NC 81, RR 18, temperature 98.1, saturating 98% on 3 L oxygen Pertinent labs are WBC 17.2 with neutrophil 12.6, chloride 77, potassium 3, BUN 60, creatinine 1.9. HCO3 40, anion gap 17, eGFR 37, creatinine clearance 30.[address] abdomen shows moderate amount of fecal matter in the colon ED treatment 1 L of NS given Past medical history: As stated above. Allergy history: None Family History: Noncontributory Review of Systems Review of Systems Systems Reviewed: All systems reviewed, normal except as documented Exam Vital Signs Temp Pulse Resp BP Pulse Ox O2 Del Method O2 Flow Rate 98.1 F 81 18 112/77 98 Nasal Cannula 3 08/27/25 05:20 08/27/25 05:20 08/27/25 05:20 08/27/25 05:20 08/27/25 05:20 08/27/25 05:20 08/27/25 05:20 Narrative Exam GENERAL: NAD, AAOx3 HEENT: Moist mucosa. Eyes open, symmetrical, & clear CARDIO: regular rhythm Noted. No Murmurs. PULM: No noted coughing/dyspnea CTA B/L, no R/W/R GI: Abdomen soft, distended with stool, Tenderness on palpation of RUQ. J tube seen Port appears normal SKIN/MSK/EXT: No wounds/rashes/amputations, no pain on palpation. Pedal pulses present B/L NEURO: AAOx3, no focal neuro deficits, able to move all 4 extremities Results: Labs 08/27/25 03:42 08/27/25 11:21 Labs: Short CBC 08/26/25 Range/Units 21:25 WBC 17.2 H (3.6-11.0) Thou/mm3 Hgb 15.1 (12.0-16.0) g/dL Hct 43.5 (36.0-46.0) % Plt Count 293 D (140-440) Thou/mm3 BMP 08/26/25 21:25 Sodium 134 L Potassium 3.0 L Chloride 77 L* Carbon Dioxide > 40.0 H BUN 60 H Creatinine 1.9 H Glucose 97 Calcium 10.2 Liver Function 08/26/25 Range/Units 21:25 Total Bilirubin 0.4 (0.3-1.2) mg/dL AST 41 H (0-34) U/L ALT 57 H (10-49) U/L Alkaline Phosphatase 99 (46-116) U/L Albumin 5.0 (3.5-5.0) gm/dL Urine 08/26/25 Range/Units 21:45 Urine Color Lt-Yellow (Lt Yel-Yel) Urine Clarity Clear (Clear/Hazy) Urine pH 8.0 H (5.0-7.0) Ur Specific Jacob 1.019 (1.001-1.035) Urine Protein Trace (Neg - Trace) Urine Glucose (UA) Negative (Negative) Quality Measures Quality Measures none Medications Home Medications and Allergies Home Medications ?Medication ?Instructions ?Recorded ?Confirmed ?Type acetaminophen 160 mg/5 mL oral 160 mg PO Q6H PRN pain 08/27/25 08/27/25 History liquid ascorbic acid (vitamin C) 500 mg/5 1 g feeding tube QDAY 08/27/25 08/27/25 History mL oral syrup bisacodyl 10 mg rectal suppository 10 mg NC Q72H PRN constipation 08/27/25 08/27/25 History (Dulcolax (bisacodyl)) calcium carbonate 400 mg/5 mL oral 400 mg PO Q6HR 08/27/25 08/27/25 History suspension ferrous sulfate 220 mg (44 mg 308 mg PO QDAY Anemia 08/27/25 08/27/25 History iron)/5 mL oral elixir fluoxetine 20 mg/5 mL (4 mg/mL) 10 mg feeding tube QAM 08/27/25 08/27/25 History oral solution hydroxyzine HCl 10 mg/5 mL oral 12.5 mg feeding tube BID PRN 08/27/25 08/27/25 History solution anxiety, shortness of breath, scratching, yelling magnesium hydroxide 400 mg/5 mL 30 ml feeding tube Q72H PRN 08/27/25 08/27/25 History oral suspension (Milk of Magnesia) constipation metoclopramide HCl 5 mg/5 mL oral 10 mg PO Q6H Upset stomach 08/27/25 08/27/25 History solution montelukast 10 mg tablet 10 mg feeding tube QDAY Allergies 08/27/25 08/27/25 History jhkztuyfslzq-yswx-xlxsfofg 15 ml PO QDAY 08/27/25 08/27/25 History neomycin-bacitracn Zn-polymyx 3.5 1 applic topical QDAY 08/27/25 08/27/25 History mg-400 unit-5,000 unit/gram top oint (Antibiotic(tvaes-mwvpc-unhgn)) ondansetron 4 mg disintegrating 8 mg feeding tube Q8H PRN nausea 08/27/25 08/27/25 History tablet and vomiting pantoprazole 40 mg tablet,delayed 40 mg PO Q12H GERD 08/27/25 08/27/25 History release sennosides 8.8 mg/5 mL oral syrup 5 ml PO QDAY Constipation 08/27/25 08/27/25 History (senna) Allergies Allergy/AdvReac Type Severity Reaction Status Date / Time No Known Allergies Allergy Verified 11/25/24 22:58 Visit Medications Discontinued Medications Diazepam (Diazepam Inj 5 Mg/Ml Vial 2 Ml) 2.5 mg IVP X1 ONE Stop: 08/26/25 23:41 Last Admin: 08/26/25 23:47 Dose: Not Given Sodium Chloride (Ns) 1,000 mls @ 999 mls/hr IV .Q1H1M ONE Stop: 08/27/25 00:40 Last Infusion: 08/27/25 01:25 Dose: Infused Assessment & Plan Plan This is a 45-year-old female with past medical history of gastroparesis, Diaphgramatic hernia,depression, CKD, anemia of chronic disease, GERD, diaphragmatic hernia, Down syndrome, G-tube, J-tube presented to the ED with complaints of Constipation ,Nausea and Vomitings. She was admitted for Chronic Constipation # Gastroparesis,Diaphragmatic hernia #severe Constipation #GERD She has abdominal pain mostly in the right side of abdomen Imaging showed stool throughout Enema and Manual disimpaction in the ED -Unsuccesful - IV reglan - Ordered Miralax and glycerin suppository - If constipation still persists -Consider GoLytely through G/Jtube - on PPI qday #Intractable Nausea and Vomiting. #Hypochloremic Metabolic Alkalosis #Hypokalemia presented with vomiting for 3-4 days nonbloody/nonbilious 2/2 Above Sodium-134,Chloride -77,Potassium-3,HCO3-40,AG-17 - Ordered IV Metoclopramide - Ordered IV fluids - Started on KCL 40mEq - Follow up with electrolytes to see if imbalances resolves. Ordered BMP at 11AM. #Pre Renal SAURAV #Bladder distention BUN-60,Creatinine-1.9 (Baseline-0.9), likely in the setting of dehydration, from vomiting - Starting on IV Fluids. - Bladder scan as needed as it appears to be distended on imaging however, patient has been voiding spontaneously - avoid nephrotoxins - renally dose medications #Mild Transaminitis mildly elevated - monitor for now Code status: Full DVT prophylaxis: SCD GI prophylaxis: Zofran Diet: Through G tube William: None Lines: PIV Supplemental O2: 3 l Nasal canula Disposition: Med/Surg Discussed this case with my senior Dr. Ross and my attending Dr. Michael. Tanisha Jack MD-PGY1 Attending Provider Attestation/Addendum Aide Clinton DO, attest that I was physically present for the thomson portions of the service and evaluated the patient with the resident and I reviewed and discussed the case with the resident and agree with the resident's findings and plans of care as documented above Patient is a 45-year-old female with past medical history of Down syndrome, severe gastroparesis requiring GJ tube, depression, CKD, anemia of chronic disease, diaphragmatic hernia, GERD and constipation who was brought from [facility] due to constipation x 5 days. She was also noted to have 3-4 episodes of vomiting for the past few days as well. Patient does not tolerate any p.o. intake and is completely PEG tube dependent. She receives Reglan 4 times a day for her gastroparesis by PEG tube. She complains of generalized abdominal pain with tenderness on palpation on exam. No abdominal distention is noted. Patient does have decreased bowel sounds otherwise. At baseline, patient is incontinent of urine. Patient underwent a CT scan in the ED which shows evidence of constipation, no evidence of colitis, bowel obstruction or free air. ED physician attempted enemas and manual disimpaction that were unsuccessful and inducing bowel movement. Patient is also noted to have an leukocytosis of 17.2. Sodium 134, potassium of 3.0, chloride 77, bicarb of greater than 40 and creatinine of 1.9 with baseline creatinine of 0.9. Lactic acid is within normal limits. Suspect that patient has acute kidney injury, hypochloremia and metabolic alkalosis secondary to intractable nausea and vomiting. In turn, this is likely secondary to her gastroparesis and constipation. Will start patient on IV Reglan. Will also start patient on IV fluid hydration. Will replete electrolytes as well. Will place bladder scan as needed as bladder appeared to be very distended on CT. However, breeding technician at bedside stated that the patient was able to void in the bathroom on her own. Due to intractable nausea vomiting, constipation leading to SAURAV and electrolyte disturbances, decision was made to admit patient to [facility] [place] further workup and medical management of severe gastroparesis. Will replete electrolytes and repeat BMP at 11 AM. Will give patient MiraLAX and glycerin suppository to help stimulate bowel movement. If unsuccessful, may consider GoLytely.
[2025-08-27] MEDS: SODIUM CHLORIDE 0.9% 1000 ML 1,000 ML 125 ML IV ×2 (06:17→18:26)
[2025-08-27] MEDS: POTASSIUM CHL 10 mEq IVPB 10 MEQ/100 ML BAG 100 MEQ IV ×4 (06:18→12:45)
[2025-08-27 06:38] LABS: Basophils # (Auto) 0.1 Thou/mm3 (0.0-0.2); Basophils % (Auto) 0 % (0-2.5); Eosinophils # (Auto) 0.0 Thou/mm3 (0.0-0.5); Eosinophils % (Auto) 0 % (0-10); Hematocrit 40.3 % (36.0-46.0); Hemoglobin 13.9 g/dL (12.0-16.0); Immature Granulocytes Auto 0.04 Thou/mm3 (0.00-0.00); Lymphocytes # (Auto) 3.4 Thou/mm3 (1.0-4.8); Lymphocytes % (Auto) 25 % (10-50); Mean Corpuscular HGB Conc 34.5 g/dl (31.0-37.0); Mean Corpuscular Hemoglobin 32.0 pg (25.0-35.0); Mean Corpuscular Volume 93 fL (80-100); Monocytes # (Auto) 1.3 Thou/mm3 (0.0-0.8); Monocytes % (Auto) 10 % (0-12); Neutrophils # (Auto) 8.6 Thou/mm3 (1.8-7.7); Neutrophils % (Auto) 64 % (37-80); Nucleated Red Blood Cell # 0.00 Thou/mm3 (0.00-0.00); Nucleated Red Blood Cell % 0 /100 WBC (0); Platelet Count 259 Thou/mm3 (140-440); RDW Standard Deviation 40.8 fL (36.4-46.3); Red Blood Count 4.35 Miln/mm3 (4.00-5.20); White Blood Count 13.4 Thou/mm3 (3.6-11.0)
[2025-08-27] MEDS: GLYCERIN, ADULT 1 EA SUPP 1 EACH PR (06:41)
--- NOTE | 2025-08-27 08:01 | PC.LAC ---
Report called to Sabina BRUMFIELD on [employer]. Pt going to room #367.
--- NOTE | 2025-08-27 08:15 | PC.NURSE ---
Pt transferred to room #367 via w/c accompanied by AGRICULTURE CONSULTANT and caregiver from [facility].
[2025-08-27] MEDS: cefTRIAXone/D5w 1gm IV premix 1 GM/50 ML BAG IV (10:02)
[2025-08-27] MEDS: METOCLOPRAMIDE INJ 5 MG/ML VIAL 2 ML 10 MG IVP ×2 (10:04→18:43)
[2025-08-27] MEDS: POLYETHYLENE GLYCOL 17 GM PACKET GT (10:50)
[2025-08-27] MEDS: SENNOSIDES SYRUP 8.8 MG/5 ML UDC GT (10:50)
[2025-08-27 11:58] LABS: Alanine Aminotransferase 47 U/L (10-49); Albumin, Serum 4.1 gm/dL (3.5-5.0); Albumin/Globulin Ratio 1.6 (1.2-2.2); Alkaline Phosphatase 86 U/L (46-116); Anion Gap 10 (7-16); Aspartate Amino Transferase 38 U/L (0-34); BUN/Creatinine Ratio 26 Ratio (12-20); Bilirubin,Total 0.3 mg/dL (0.3-1.2); Blood Urea Nitrogen 31 mg/dL (9-23); Calcium 8.8 mg/dL (8.3-10.6); Calcium (Corrected) 8.8 mg/dL (8.5-10.1); Carbon Dioxide 33.8 mMol/L (20.0-31.0); Chloride 90 mMol/L (98-107); Creatinine (Component) 1.2 mg/dL (0.6-1.3); Estimated Creatinine Clearance 48.6 mL/min (>60); Globulin 2.6 gm/dL (2.3-3.5); Glucose 91 mg/dL (74-106); Osmolality,Calculated 274 (275-295); Potassium 3.8 mMol/L (3.4-5.1); Sodium 134 mMol/L (136-145); Total Protein 6.7 gm/dL (5.7-8.2); eGFR 56 See Note
--- NOTE | 2025-08-27 13:36 | ESPR_ITS ---
<Statement entered by Michael Davies MD - 08/27/25 14:48> Patient seen and assessed in hospital bed denies having any concerning symptoms at this time other than some abdominal pressure-like sensation diffusely. Patient is on 2 L nasal cannula saturating 99+ likely secondary to constipation causing some respiratory difficulties. Initiated bowel regimen as the patient does not have any signs of obstruction on imaging studies. On x-ray there is some bibasilar pneumonia, as result we will start IV ceftriaxone. Will continue monitoring the patient closely but expect discharge within the next 24 to 48 hours. I have personally seen and examined the patient. I agree with the medical student's assessment and plan as documented below. Michael Davies DO PGY-2 Internal Medicine - [facility] Documentation for date of: 08/27/25 Subjective Subjective Interval history: Patient continues to complain of RLQ and LUQ pain that is characterized as sharp on palpation. Patient is verbal and can communicate minimally and can follow directions. Her vitals have been stable. Her labs at the time of encounter were notable for elevated WBC 13.4, decreased K+ 3, decreased Cl 77, increased Bicarb >40, elevated BUN 60 and elevated Cr 1.9. Her baseline Cr is 1.2s. In the ED, she had multiple enemas, manual disimpaction, glycerin, miralax and metoclopramide with no success at alleviating the constipation. She denies fever, chills, nausea or vomiting. Exam Vital Signs Temp Pulse Resp BP Pulse Ox O2 Del Method O2 Flow Rate 97.0 F 88 16 98/78 99 Nasal Cannula 3 08/27/25 08:35 08/27/25 08:35 08/27/25 08:35 08/27/25 08:35 08/27/25 08:35 08/27/25 08:00 08/27/25 08:00 Narrative Exam General: Patient alert, oriented, in no acute distress. HEENT: Normocephalic, atraumatic. PERRLA, EOMI. Oropharynx clear, mucous membranes moist. Poor dentition. Neck: Supple, trachea midline, no thyromegaly or lymphadenopathy. Cardiac: Regular rate and rhythm, normal S1/S2, no murmurs, rubs, or gallops. Lungs: Normal effort, clear to auscultation bilaterally, no wheezes, rales, or rhonchi. Abdomen: Soft, mildly distended due to constipation. Tender to LUQ and RLQ. Minimal bowel sounds. No rebound/gaurding. J tube site is clean, dry, intact with no erythema or drainage. Extremities: Warm, well-perfused, no clubbing, cyanosis, or edema. Full range of motion, no joint tenderness. Skin: Warm, dry, intact. No rashes, lesions, or ecchymoses. Neuro: Alert and oriented ?3. Speech fluent. Cranial nerves II?XII grossly intact. Objective Labs 08/27/25 03:42 08/28/25 04:20 Labs: Laboratory Results - last 24 hr 08/26/25 08/26/25 08/27/25 21:25 21:45 03:42 WBC 17.2 H 13.4 H RBC 4.76 4.35 Hgb 15.1 13.9 Hct 43.5 40.3 MCV 91 93 MCH 31.7 32.0 MCHC 34.7 34.5 RDW Std Deviation 40.0 40.8 Plt Count 293 D 259 D Neut % (Auto) 73 64 Lymph % (Auto) 17 25 [place] % (Auto) 9 10 Eos % (Auto) 0 0 Baso % (Auto) 0 0 Neut # (Auto) 12.6 H 8.6 H Lymph # (Auto) 2.9 3.4 [place] # (Auto) 1.6 H 1.3 H Eos # (Auto) 0.0 0.0 Baso # (Auto) 0.1 0.1 Immature Gran # (Auto) 0.04 H 0.04 H Absolute Nucleated RBC 0.00 0.00 Immature Gran % 0 0 Nucleated RBC % 0 0 PT 11.4 INR 1.1 APTT 25.4 Sodium 134 L Potassium 3.0 L Chloride 77 L* Carbon Dioxide > 40.0 H Anion Gap 17 H BUN 60 H Creatinine 1.9 H Estim Creat Clear Calc 30.7 L eGFR 32 L BUN/Creatinine Ratio 32 H Glucose 97 Calculated Osmolality 285 Lactic Acid 1.8 Calcium 10.2 Corrected Calcium 10.2 H Magnesium 2.9 H Total Bilirubin 0.4 AST 41 H ALT 57 H Alkaline Phosphatase 99 B-Natriuretic Peptide < 20 Total Protein 8.0 Albumin 5.0 Globulin 3.0 Albumin/Globulin Ratio 1.7 Lipase 60 H Ur Collection Type Clean Catch Urine Color Lt-Yellow Urine Clarity Clear Urine pH 8.0 H Ur Specific [place] 1.019 Urine Protein Trace Urine Glucose (UA) Negative Urine Ketones Negative Urine Blood Negative Urine Nitrite Negative Urine Bilirubin Negative Urine Urobilinogen (Auto) Negative Ur Leukocyte Esterase Negative Urine RBC 5 H Urine WBC 1 Ur Squamous Epith Cells 5 Urine Bacteria None Ur Culture Indicated? Not Indicated Urine Opiates Screen Negative Urine Fentanyl Screen Negative Ur Barbiturates Screen Negative U Amphetamin/Meth Scrn Negative U Benzodiazepines Scrn Negative U Cocaine Metab Screen Negative U Marijuana (THC) Screen Negative 08/27/25 11:21 WBC RBC Hgb Hct MCV MCH MCHC RDW Std Deviation Plt Count Neut % (Auto) Lymph % (Auto) [place] % (Auto) Eos % (Auto) Baso % (Auto) Neut # (Auto) Lymph # (Auto) [place] # (Auto) Eos # (Auto) Baso # (Auto) Immature Gran # (Auto) Absolute Nucleated RBC Immature Gran % Nucleated RBC % PT INR APTT Sodium 134 L Potassium 3.8 D Chloride 90 L Carbon Dioxide 33.8 H Anion Gap 10 BUN 31 H Creatinine 1.2 D Estim Creat Clear Calc 48.6 L eGFR 56 L BUN/Creatinine Ratio 26 H Glucose 91 Calculated Osmolality 274 L Lactic Acid Calcium 8.8 Corrected Calcium 8.8 Magnesium Total Bilirubin 0.3 AST 38 H ALT 47 Alkaline Phosphatase 86 B-Natriuretic Peptide Total Protein 6.7 Albumin 4.1 D Globulin 2.6 Albumin/Globulin Ratio 1.6 Lipase Ur Collection Type Urine Color Urine Clarity Urine pH Ur Specific [place] Urine Protein Urine Glucose (UA) Urine Ketones Urine Blood Urine Nitrite Urine Bilirubin Urine Urobilinogen (Auto) Ur Leukocyte Esterase Urine RBC Urine WBC Ur Squamous Epith Cells Urine Bacteria Ur Culture Indicated? Urine Opiates Screen Urine Fentanyl Screen Ur Barbiturates Screen U Amphetamin/Meth Scrn U Benzodiazepines Scrn U Cocaine Metab Screen U Marijuana (THC) Screen Quality Measures Quality Measures none Assessment & Plan Assessment Current Active Medications: Generic Name Dose Route Start Last Admin Trade Name Freq PRN Reason Stop Dose Admin Acetaminophen 650 mg 08/27/25 05:39 Acetaminophen 325 Mg Tablet PO 09/26/25 05:38 Q6H PRN Fever >100.4 Acetaminophen 650 mg 08/27/25 05:39 Acetaminophen 325 Mg Tablet PO 09/26/25 05:38 Q6H PRN PAIN SCALE 1-3 (mild Sodium Chloride 1,000 mls @ 125 mls/hr 08/27/25 05:50 08/27/25 06:17 Ns IV 08/27/25 21:49 125 mls/hr .Q8H TIANA Administration Ceftriaxone Sodium/Dextrose 1 gm in 50 mls @ 100 mls/hr 08/27/25 08:52 08/27/25 10:02 Rocephin/D5w 1gm Iv Premix IV 09/03/25 08:51 100 mls/hr QDAY TIANA Administration Metoclopramide HCl 10 mg 08/27/25 06:30 08/27/25 12:49 Metoclopramide Inj 5 Mg/Ml Vial 2 Ml IVP 09/26/25 06:29 Not Given Q6H TIANA Protocol Ondansetron HCl 4 mg 08/27/25 05:39 Ondansetron Inj 2 Mg/Ml Inj 2 Ml IVP 09/26/25 05:38 On Hold: 08/27/25 08:52 Q6H PRN NAUSEA OR VOMITING Protocol Pantoprazole Sodium 40 mg 08/27/25 09:00 08/27/25 10:01 Pantoprazole Inj 40 Mg Vial IVP 09/26/25 08:59 40 mg QDAY TIANA Administration Polyethylene Glycol 17 gm 08/27/25 09:00 08/27/25 10:50 Polyethylene Glycol 17 Gm Packet GT 09/26/25 08:59 17 gm QDAY TIANA Administration Sennosides 8.8 mg 08/27/25 09:00 08/27/25 10:50 Sennosides Syrup 8.8 Mg/5 Ml Udc GT 09/26/25 08:59 8.8 mg QDAY TIANA Administration Protocol Plan 45-year-old female with significant PMHx of Down Syndrome, s/p J-tube, gastroparesis, diaphragmatic hernia, depression, CKD, anemia of chronic disease, GERD presented with constipation, nausea and vomiting and admitted for management of chronic constipation. #Mixed Acid-Base Disorder #Metabolic Alkalosis 2/2 Intractable Nausea and Vomiting, resolving #High-Anion Gap Metabolic Acidosis 2/2 to CKD (Uremic Acidosis), resolving #Hypokalemia Patient demonstrates metabolic alkalosis due to recurrent 3-4 days of vomiting and labs significant for elevated Bicarb from >40 at admission now to 33.8. Concurrent high?anion gap metabolic acidosis (AG 17 at admission now 10) is likely secondary to uremic acidosis from underlying CKD (BUN 60, Cr 1.9, eGFR 32 at admission now BUN 31, Cr 1.2, eGFR 56). Overall, picture consistent with a mixed metabolic alkalosis and high?anion gap metabolic acidosis that is now resolving. Patient had underlying hypokalemia with a K+ value of 3 at admission now improved to 3.8 with proper repletion. Patient was on Zofran and Reglan and had elevated Qtc interval 472 and so Zofran was put on hold. Plan - Continue IV Metoclopramide - Continue IV Fluids - NS 125 mls/hr - Continue to monitor electrolytes - Continue to monitor BMP daily - Correct volume status and electrolytes - Avoid nephrotoxins #Severe Constipation 2/2 to Gastroparesis vs. Diaphragmatic Hernia #GERD Patient with known gastroparesis, diaphragmatic hernia, and GERD presenting with significant constipation. She complains of continued RLQ and LUQ pain likely from the constipation. CT abdomen/pelvis revealed a large retrocardiac gastric hernia and abundant stool throughout the colon without evidence of obstruction or appendiceal pathology. Constipation is likely multifactorial due to impaired gastric motility and mechanical effects of the hernia. - Continue IV Metoclopramide - Continue Miralax and glycerin suppository - Start Fleet Mineral Oil Enema - Start Senna - Continue IV Pantoprazole 40 IVP #Sepsis 2/2 to Possible Aspiration Pneumonia vs. Pneumonitis Sepsis criteria was met due to presence of elevated WBC on admission 17.2, HR 107 and signs of end organ damage of Cr 1.9. Patient with Down syndrome, hypotonia, and significant GI dysmotility (gastroparesis, J-tube, GERD) is at high risk for aspiration, particularly in the setting of vomiting. Will monitor for signs of aspiration pneumonia (fever, respiratory distress, new infiltrates). Chest X-ray did reveal subtle opacity in the perihilar basilar regions suspicious for early pneumonia. Plan - Start IV Ceftriaxone 1gm - Monitor for clinical improvement for fever, leukocytosis and respiratory symptoms - Repeat chest imaging if respiratory status worsens #Pre-Renal SAURAV Patient presented with BUN 60 and Cr 1.9 with ratio of 32, now improved to BUN 31 and Cr 1.2 with ratio of 26. SAURAV is likely secondary to volume depletion from vomiting and poor oral intake. Improvement in renal indices supports pre-renal etiology. Plan - Continue IV fluids for rehydration; monitor response. - Avoid nephrotoxins - Monitor daily BMP for renal recovery - Assess urine output and volume status - Address underlying cause (control vomiting, correct electrolyte abnormalities) Hospital Maintenance: Disposition: Med/Surg DVT prophylaxis: SCD GI prophylaxis: Zofran Diet: Through G tube William: None Lines: PIV Supplemental O2: 3 l Nasal canula Code Status: Full Patient seen and assessed under supervision of attending physician Dr. Hidalgo. Pratik NICOLE, Internal Medicine Attending Provider Attestation/Addendum I reviewed labs, imaging, EKG, home medications and prior available records. Face to face evaluation was performed by me. I have personally examined the patient and discussed assessment and plan with the IM team. I reviewed the resident note and agree with the plan with exceptions as below. Nausea and vomiting Constipation SAURAV Metabolic alkalosis Hypokalemia Leukocytosis Management of constipation as needed Continue IV fluids Start PPI Monitor BMP Replete electrolytes as needed Trend WBC
--- NOTE | 2025-08-27 18:29 | PC.NURSE ---
Maya BRUMFIELD from [facility] at the [facility] with Large BM 08/26/25, medium BM 08/25. Patient previously passed speech eval (July/2025 )and oral intake was initiated. Oral intake was stopped at 08/09/2025 at the request of patients sister for concerns of aspiration. Patient has been on tube feeding since until admission to hospital.
[2025-08-28] VITALS: BP 101/60; PULSE 65; RESP 18; TEMP 36.1; O2SAT 95
[2025-08-28] MEDS: METOCLOPRAMIDE INJ 5 MG/ML VIAL 2 ML 10 MG IVP ×4 (00:01→18:13)
--- NOTE | 2025-08-28 01:09 | PC.NURSE ---
pt complaining of abd pain around the g tube site 04/24, Dr. Ross was made aware, Per MD to give tylenol through G tube, BS 77, MD aware. MD aware that pt there is no NPO order, Md stated that he would add the NPO order later.
[2025-08-28] MEDS: ACETAMINOPHEN 325 MG TABLET 650 MG PO (01:15)
[2025-08-28 04:00] VITALS: BP 84/51; PULSE 71; RESP 19; TEMP 36.1; O2SAT 95
--- NOTE | 2025-08-28 04:13 | PC.NURSE ---
BP 82/57, 81/52, HR 77, pt is awake, pt stated that she is feeling okay just feeling hungry Dr. Dutton was made aware, new orders for pt, see MAR.
[2025-08-28] MEDS: SODIUM CHLORIDE 0.9% 250 ML 250 ML 999 ML IV (04:26)
[2025-08-28] MEDS: RINGERS LACTATED 1000 ML 1,000 ML 125 ML IV (04:26)
[2025-08-28 06:00] LABS: Alanine Aminotransferase 35 U/L (10-49); Albumin, Serum 3.5 gm/dL (3.5-5.0); Albumin/Globulin Ratio 1.7 (1.2-2.2); Alkaline Phosphatase 73 U/L (46-116); Anion Gap 10 (7-16); Aspartate Amino Transferase 29 U/L (0-34); BUN/Creatinine Ratio 33 Ratio (12-20); Bilirubin,Total 0.3 mg/dL (0.3-1.2); Blood Urea Nitrogen 33 mg/dL (9-23); Calcium 8.5 mg/dL (8.3-10.6); Calcium (Corrected) 8.9 mg/dL (8.5-10.1); Carbon Dioxide 29.6 mMol/L (20.0-31.0); Chloride 100 mMol/L (98-107); Creatinine (Component) 1.0 mg/dL (0.6-1.3); Estimated Creatinine Clearance 58.3 mL/min (>60); Globulin 2.1 gm/dL (2.3-3.5); Glucose 80 mg/dL (74-106); Osmolality,Calculated 285 (275-295); Potassium 3.4 mMol/L (3.4-5.1); Sodium 140 mMol/L (136-145); Total Protein 5.6 gm/dL (5.7-8.2); eGFR > 60 See Note
[2025-08-28 07:49] VITALS: BP 88/49; PULSE 68; RESP 18; TEMP 36.1; O2SAT 96
[2025-08-28 08:16] LABS: Basophils # (Auto) 0.1 Thou/mm3 (0.0-0.2); Basophils % (Auto) 1 % (0-2.5); Eosinophils # (Auto) 0.1 Thou/mm3 (0.0-0.5); Eosinophils % (Auto) 1 % (0-10); Hematocrit 32.1 % (36.0-46.0); Hemoglobin 11.2 g/dL (12.0-16.0); Immature Granulocytes Auto 0.02 Thou/mm3 (0.00-0.00); Lymphocytes # (Auto) 2.4 Thou/mm3 (1.0-4.8); Lymphocytes % (Auto) 32 % (10-50); Mean Corpuscular HGB Conc 34.9 g/dl (31.0-37.0); Mean Corpuscular Hemoglobin 32.7 pg (25.0-35.0); Mean Corpuscular Volume 94 fL (80-100); Monocytes # (Auto) 0.6 Thou/mm3 (0.0-0.8); Monocytes % (Auto) 8 % (0-12); Neutrophils # (Auto) 4.3 Thou/mm3 (1.8-7.7); Neutrophils % (Auto) 58 % (37-80); Nucleated Red Blood Cell # 0.00 Thou/mm3 (0.00-0.00); Nucleated Red Blood Cell % 0 /100 WBC (0); Platelet Count 172 Thou/mm3 (140-440); RDW Standard Deviation 42.0 fL (36.4-46.3); Red Blood Count 3.42 Miln/mm3 (4.00-5.20); White Blood Count 7.4 Thou/mm3 (3.6-11.0)
--- NOTE | 2025-08-28 09:13 | ESPR_ITS ---
<Statement entered by Michael Davies MD - 08/28/25 16:10> Patient seen and assessed in hospital bed denies having any concerning symptoms at this time. Patient is currently off supplemental oxygenation but has yet to have a bowel movement. Imaging findings have not shown any sign of obstruction. Will start GoLytely at 30 cc an hour from the PEG tube and increase by 10 cc an hour to a goal of 50 cc/h until the patient has a bowel movement. During this time, patient will be n.p.o. and no tube feeds will be given through the PEG tube. Once patient has a bowel movement, will restart tube feeds and allow therapeutic feedings as per speech evaluation. Will continue monitoring the patient and expect discharge within the next 24 to 48 hours. I have personally seen and examined the patient. I agree with the medical student's assessment and plan as documented below. Michael Davies DO PGY-2 Internal Medicine - [facility] Documentation for date of: 08/28/25 Subjective Subjective Interval history: Patient's blood pressure was hypotensive 84/51 overnight. She was started on IV fluids overnight for maintenance. As per the nurse the morning, patient did not have bowel movement and will be monitored today. Patient denies fever, chill, nausea, vomiting. She feels better and is no acute pain, though her abdominal LUQ is reagent tender helper to palpation Exam Vital Signs Temp Pulse Resp BP Pulse Ox O2 Del Method O2 Flow Rate 97.0 F 68 18 88/49 L 96 Nasal Cannula 3 08/28/25 07:49 08/28/25 07:49 08/28/25 07:49 08/28/25 07:49 08/28/25 07:49 08/28/25 07:49 08/28/25 07:49 Narrative Exam General: Patient alert, oriented, in no acute distress. HEENT: Normocephalic, atraumatic. PERRLA, EOMI. Oropharynx clear, mucous membranes moist. Poor dentition. Neck: Supple, trachea midline, no thyromegaly or lymphadenopathy. Cardiac: Regular rate and rhythm, normal S1/S2, no murmurs, rubs, or gallops. Lungs: Normal effort, clear to auscultation bilaterally, no wheezes, rales, or rhonchi. Abdomen: Soft, mildly distended due to constipation. Tender to LUQ. Minimal bowel sounds. No rebound/gaurding. J tube site is clean, dry, intact with no erythema or drainage. Extremities: Warm, well-perfused, no clubbing, cyanosis, or edema. Full range of motion, no joint tenderness. Skin: Warm, dry, intact. No rashes, lesions, or ecchymoses. Neuro: Alert and oriented ?3. Speech fluent. Cranial nerves II?XII grossly intact. Objective Labs 08/29/25 04:50 08/29/25 04:50 Labs: Laboratory Results - last 24 hr 08/27/25 08/28/25 11:21 04:20 WBC 7.4 D RBC 3.42 L Hgb 11.2 L D Hct 32.1 L MCV 94 MCH 32.7 MCHC 34.9 RDW Std Deviation 42.0 Plt Count 172 D Neut % (Auto) 58 Lymph % (Auto) 32 Lane % (Auto) 8 Eos % (Auto) 1 Baso % (Auto) 1 Neut # (Auto) 4.3 Lymph # (Auto) 2.4 Lane # (Auto) 0.6 Eos # (Auto) 0.1 Baso # (Auto) 0.1 Immature Gran # (Auto) 0.02 H Absolute Nucleated RBC 0.00 Immature Gran % 0 Nucleated RBC % 0 Sodium 134 L 140 Potassium 3.8 D 3.4 Chloride 90 L 100 Carbon Dioxide 33.8 H 29.6 Anion Gap 10 10 BUN 31 H 33 H Creatinine 1.2 D 1.0 Estim Creat Clear Calc 48.6 L 58.3 L eGFR 56 L > 60 BUN/Creatinine Ratio 26 H 33 H Glucose 91 80 Calculated Osmolality 274 L 285 Calcium 8.8 8.5 Corrected Calcium 8.8 8.9 Total Bilirubin 0.3 0.3 AST 38 H 29 ALT 47 35 Alkaline Phosphatase 86 73 Total Protein 6.7 5.6 L Albumin 4.1 D 3.5 D Globulin 2.6 2.1 L Albumin/Globulin Ratio 1.6 1.7 Quality Measures Quality Measures none Assessment & Plan Assessment Current Active Medications: Generic Name Dose Route Start Last Admin Trade Name Freq PRN Reason Stop Dose Admin Acetaminophen 650 mg 08/27/25 05:39 Acetaminophen 325 Mg Tablet PO 09/26/25 05:38 Q6H PRN Fever >100.4 Acetaminophen 650 mg 08/27/25 05:39 08/28/25 01:15 Acetaminophen 325 Mg Tablet PO 09/26/25 05:38 650 mg Q6H PRN Administration PAIN SCALE 1-3 (mild Ceftriaxone Sodium/Dextrose 1 gm in 50 mls @ 100 mls/hr 08/27/25 08:52 08/27/25 10:02 Rocephin/D5w 1gm Iv Premix IV 09/03/25 08:51 100 mls/hr QDAY TIANA Administration Lactated Ringer's 1,000 mls @ 125 mls/hr 08/28/25 04:15 08/28/25 04:26 Lactated Ringers IV 08/28/25 12:14 125 mls/hr .Q8H ONE Administration Metoclopramide HCl 10 mg 08/27/25 06:30 08/28/25 05:48 Metoclopramide Inj 5 Mg/Ml Vial 2 Ml IVP 09/26/25 06:29 10 mg Q6H TIANA Administration Protocol Ondansetron HCl 4 mg 08/27/25 05:39 Ondansetron Inj 2 Mg/Ml Inj 2 Ml IVP 09/26/25 05:38 On Hold: 08/27/25 08:52 Q6H PRN NAUSEA OR VOMITING Protocol Pantoprazole Sodium 40 mg 08/27/25 09:00 08/27/25 10:01 Pantoprazole Inj 40 Mg Vial IVP 09/26/25 08:59 40 mg QDAY TIANA Administration Polyethylene Glycol 17 gm 08/27/25 09:00 08/27/25 10:50 Polyethylene Glycol 17 Gm Packet GT 09/26/25 08:59 17 gm QDAY TIANA Administration Sennosides 8.8 mg 08/27/25 09:00 08/27/25 10:50 Sennosides Syrup 8.8 Mg/5 Ml Udc GT 09/26/25 08:59 8.8 mg QDAY TIANA Administration Protocol Plan 45-year-old female with significant PMHx of Down Syndrome, s/p J-tube, gastroparesis, diaphragmatic hernia, depression, CKD, anemia of chronic disease, GERD presented with constipation, nausea and vomiting and admitted for management of chronic constipation. #Mixed Acid-Base Disorder, resolving #Metabolic Alkalosis 2/2 Intractable Nausea and Vomiting, resolving #High-Anion Gap Metabolic Acidosis 2/2 to CKD (Uremic Acidosis), resolving #Hypokalemia Patient demonstrates metabolic alkalosis due to recurrent 3-4 days of vomiting and labs significant for elevated Bicarb now stable. Concurrent high?anion gap metabolic acidosis is likely secondary to uremic acidosis from underlying CKD. Her chemistry is now stable indicating resolving acidosis. Overall, picture consistent with a mixed metabolic alkalosis and high?anion gap metabolic acidosis that is now resolving. Patient will be monitored for improvement in nausea and vomiting, and will be continued on IV fluids. Plan - Continue IV Metoclopramide - Continue IV Fluids - LR 125 mls/hr - Continue to monitor electrolytes - Continue to monitor BMP daily - Correct volume status and electrolytes - Avoid nephrotoxins #Severe Constipation 2/2 to Gastroparesis vs. Diaphragmatic Hernia, resolving #GERD Patient with known gastroparesis, diaphragmatic hernia, and GERD presenting with significant constipation. She complains of continued RLQ and LUQ pain likely from the constipation. CT abdomen/pelvis revealed a large retrocardiac gastric hernia and abundant stool throughout the colon without evidence of obstruction or appendiceal pathology. Constipation is likely multifactorial due to impaired gastric motility and mechanical effects of the hernia. Patient was reported to have no bowel movement overnight and will advance bowel regimen. - Continue IV Metoclopramide - Started GoLytely at 30 cc an hour, will increase by 10 cc an hour to a goal of 50 cc/h until patient has a bowel movement - Continue IV Pantoprazole 40 IVP - N.p.o. and no tube feeds until patient has a bowel movement, will restart when patient has a bowel movement #Sepsis 2/2 to Possible Aspiration Pneumonia vs. Pneumonitis, resolving #Leukocytosis, resolved Sepsis criteria was met due to presence of elevated WBC on admission 17.2, HR 107 and signs of end organ damage of Cr 1.9. Patient with Down syndrome, hypotonia, and significant GI dysmotility (gastroparesis, J-tube, GERD) is at high risk for aspiration, particularly in the setting of vomiting. Chest X-ray did reveal subtle opacity in the perihilar basilar regions suspicious for early pneumonia. Patient does not have respiratory symptoms indicating that her possible pnuemonitis is resolving and her WBC has stabilized as well. Patient will be continued empirically on antiobiotics today and monitored for any status changes. Blood culture shows no growth in the last 24 hours. Plan - Continue IV Ceftriaxone 1gm and IV Fluids - Monitor for clinical improvement for fever, leukocytosis and respiratory symptoms - Repeat chest imaging if respiratory status worsens #Acute Hypotension Patient was reported to have low BP overnight with systolic in the 80s. Her baseline is systolic in the 90s. Patient was given IV fluid bolus and started on fluids. Her blood pressure will be continued to be monitored. Plan - Continue IV Fluids - Monitor for changes in blood pressure #Pre-Renal SAURAV, resolving Patient presented with BUN 60 and Cr 1.9 with ratio of 32, now improved to BUN 33 and Cr 1.0. SAURAV is likely secondary to volume depletion from vomiting and poor oral intake. Improvement in renal indices supports pre-renal etiology. Plan - Continue IV fluids for rehydration; monitor response. - Avoid nephrotoxins - Monitor daily BMP for renal recovery - Assess urine output and volume status - Address underlying cause (control vomiting, correct electrolyte abnormalities) Hospital Maintenance: Disposition: Med/Surg DVT prophylaxis: SCD GI prophylaxis: Zofran Diet: Through G tube William: None Lines: PIV Supplemental O2: 3 l Nasal canula Code Status: Full Patient seen and assessed under supervision of attending physician Dr. Hidalgo. Pratik NICOLE, Internal Medicine Attending Provider Attestation/Addendum I reviewed labs, imaging, EKG, home medications and prior available records. Face to face evaluation was performed by me. I have personally examined the patient and discussed assessment and plan with the IM team. I reviewed the resident note and agree with the plan with exceptions as below. Nausea and vomiting Constipation Acute hypotension, likely secondary to hypovolemia and dehydration SAURAV, improved Metabolic alkalosis Hypokalemia Leukocytosis Management of constipation: Still no bowel movement. Will add GoLytely through G-tube Continue IV fluids Continue PPI Monitor BMP Replete electrolytes as needed Trend WBC: Downtrending
[2025-08-28] MEDS: cefTRIAXone/D5w 1gm IV premix 1 GM/50 ML BAG IV (09:52)
[2025-08-28 09:54] VITALS: BMI 30.2
--- NOTE | 2025-08-28 10:51 | PC.NURSE ---
SPEECH THERAPIST AT BEDSIDE ASSESSING PT.
--- NOTE | 2025-08-28 11:11 | PCS.ST ---
Swallow Evaluation completed. See report for details. Functional mamta-pharyngeal swallow. Recommend pleasure eating/drinking. Defer amount and frequency to medical team to minimize reflux or vomiting risks. Suggest a total of 4 ounces of puree and/or liquid 3 times a day.
--- NOTE | 2025-08-28 11:47 | PC.DIETICIAN ---
Jevity 1.2 at 45ml/hr x 24 hours via PEJ by pump FWF 30ml/hr x 24 hours concurrent flush (720ml) Providing 1296 kcal, 60g protein, 183g carbs, 18g fiber, 872ml water +720ml FW from flushes (1592ml total water)
[2025-08-28 12:00] VITALS: BP 102/65; PULSE 79; RESP 17; TEMP 36.2; O2SAT 98
[2025-08-28] MEDS: NA SU/NAHCO3/KC/PEG (Golytely) 4,000 ML BTL 4000 ML GT (12:05)
--- NOTE | 2025-08-28 12:22 | PC.NURSE ---
GOLYTELY STARTED VIA PEG TUBE AT RATE OF 30ML/HR.
--- NOTE | 2025-08-28 15:43 | PC.NURSE ---
PATIENT ON GOLYTELY, NO ABDOMEN DISTENSION, AND PASSING GAS. CAREGIVER AT BEDSIDE.
[2025-08-28 16:00] VITALS: BP 102/65; PULSE 79; RESP 17; TEMP 36.2; O2SAT 98
[2025-08-28 20:00] VITALS: BP 98/62; PULSE 90; RESP 16; TEMP 36.6; O2SAT 94
[2025-08-29] VITALS: BP 114/74; PULSE 76; RESP 17; TEMP 36.2; O2SAT 98
[2025-08-29] MEDS: METOCLOPRAMIDE INJ 5 MG/ML VIAL 2 ML 10 MG IVP ×2 (00:23→05:38)
[2025-08-29 04:00] VITALS: BP 90/56; PULSE 66; RESP 16; TEMP 36.2; O2SAT 96
[2025-08-29 05:55] LABS: Basophils # (Auto) 0.1 Thou/mm3 (0.0-0.2); Basophils % (Auto) 1 % (0-2.5); Eosinophils # (Auto) 0.1 Thou/mm3 (0.0-0.5); Eosinophils % (Auto) 2 % (0-10); Hematocrit 34.0 % (36.0-46.0); Hemoglobin 11.5 g/dL (12.0-16.0); Immature Granulocytes Auto 0.02 Thou/mm3 (0.00-0.00); Lymphocytes # (Auto) 2.3 Thou/mm3 (1.0-4.8); Lymphocytes % (Auto) 34 % (10-50); Mean Corpuscular HGB Conc 33.8 g/dl (31.0-37.0); Mean Corpuscular Hemoglobin 31.2 pg (25.0-35.0); Mean Corpuscular Volume 92 fL (80-100); Monocytes # (Auto) 0.6 Thou/mm3 (0.0-0.8); Monocytes % (Auto) 9 % (0-12); Neutrophils # (Auto) 3.7 Thou/mm3 (1.8-7.7); Neutrophils % (Auto) 54 % (37-80); Nucleated Red Blood Cell # 0.00 Thou/mm3 (0.00-0.00); Nucleated Red Blood Cell % 0 /100 WBC (0); Platelet Count 201 Thou/mm3 (140-440); RDW Standard Deviation 39.6 fL (36.4-46.3); Red Blood Count 3.69 Miln/mm3 (4.00-5.20); White Blood Count 6.9 Thou/mm3 (3.6-11.0)
[2025-08-29 06:26] LABS: Alanine Aminotransferase 31 U/L (10-49); Albumin, Serum 3.5 gm/dL (3.5-5.0); Albumin/Globulin Ratio 1.7 (1.2-2.2); Alkaline Phosphatase 74 U/L (46-116); Anion Gap 10 (7-16); Aspartate Amino Transferase 28 U/L (0-34); BUN/Creatinine Ratio 21 Ratio (12-20); Bilirubin,Total 0.3 mg/dL (0.3-1.2); Blood Urea Nitrogen 17 mg/dL (9-23); Calcium 8.4 mg/dL (8.3-10.6); Calcium (Corrected) 8.8 mg/dL (8.5-10.1); Carbon Dioxide 27.0 mMol/L (20.0-31.0); Chloride 103 mMol/L (98-107); Creatinine (Component) 0.8 mg/dL (0.6-1.3); Estimated Creatinine Clearance 72.9 mL/min (>60); Globulin 2.1 gm/dL (2.3-3.5); Glucose 79 mg/dL (74-106); Osmolality,Calculated 279 (275-295); Potassium 3.9 mMol/L (3.4-5.1); Sodium 140 mMol/L (136-145); Total Protein 5.6 gm/dL (5.7-8.2); eGFR > 60 See Note
--- NOTE | 2025-08-29 06:27 | PC.NURSE ---
Patient had 1x large BM after administration of fleet enema.
[2025-08-29 08:00] VITALS: BP 100/64; PULSE 75; RESP 18; TEMP 36.2; O2SAT 92
[2025-08-29] MEDS: LANSOPRAZOLE 30 MG TAB.RAP.DR GT (09:51)
--- NOTE | 2025-08-29 10:54 | ESDS_ITS ---
<Statement entered by Michael Davies MD - 08/29/25 18:28> I have personally seen and examined the patient. I agree with the medical student's discharge summary as documented below. Michael Davies DO PGY-2 Internal Medicine - GME Planned Discharge Date 08/29/25 DS: Providers Provider Date of admission: 08/27/25 05:39 Primary care physician: Physician No Primary/Family Admitting Provider: Aide Michael DO Attending Provider on Admission: Geovany Hidalgo MD Consults: 08/27/25 09:20 Referral Registered Dietitian Routine Comment: PEG tube feed recs 08/27/25 17:27 [facility] Referral - Knowledge Deficit Routine Comment: Positive screening for knowledge deficit needs. 08/28/25 09:39 Referral Speech Therapy Routine Comment: Attending Provider on DC: Estefania Azevedo Discharging Provider: Estefania Azevedo DS: Diagnosis Problem List Completed Was Problem List Reviewed/Reconciled?: Yes Hospital Course Hospital Course Hospital course: 45-year-old female with a history of gastroparesis, diaphragmatic hernia, GERD, CKD, anemia of chronic disease, depression, Down syndrome, and G/J-tube dependence who presented with 5 days of constipation and 2 days of nausea and vomiting. Initial evaluation revealed leukocytosis, hypokalemia, metabolic alkalosis with concurrent high?anion gap metabolic acidosis, pre-renal SAURAV, and CT abdomen showing a large retrocardiac gastric hernia with significant stool burden but no obstruction. She was treated with IV fluids, electrolyte repletion, IV metoclopramide, bowel regimen including Miralax, glycerin suppositories, senna, and enemas, and later GoLytely for persistent constipation. Empiric IV ceftriaxone was initiated for suspected aspiration pneumonia versus pneumonitis given leukocytosis and subtle chest X-ray opacity, though blood cultures remained negative and leukocytosis resolved. Her renal function and metabolic derangements improved with rehydration, and her hypotension responded to IV fluids. She subsequently had bowel movements following fleet enemas, with significant symptomatic improvement. At this time, her constipation, metabolic abnormalities, SAURAV, and suspected pneumonitis are resolving, and she is clinically stable for continued supportive care and gradual reintroduction of tube feeds. Patient is medically stable at baseline and is ready for discharge. Patient is discharged to home with following medications and recommendations: - Continue all medications as prescribed and use bowel regimen with m etoclopramide every 6 hours for constipation; avoid using ondansetron when using metoclopramide - Please follow-up with PCP within 1 week of discharge - If symptoms worsen or if you experience fever/chills, chest pain, shortness of breath or severe abdominal pain, please come back to the ED immediately Admission Diagnoses: #Mixed Acid-Base Disorder, resolved #Metabolic Alkalosis 2/2 Intractable Nausea and Vomiting, resolved #High-Anion Gap Metabolic Acidosis 2/2 to CKD (Uremic Acidosis), resolved #Hypokalemia #Severe Constipation 2/2 to Gastroparesis vs. Diaphragmatic Hernia, resolved #GERD #Sepsis 2/2 to Possible Aspiration Pneumonia vs. Pneumonitis, resolved #Leukocytosis, resolved #Acute Hypotension, resolved #Pre-Renal SAURAV, resolved Patient seen and assessed under supervision of attending physician Dr. Hidalgo. Pratik NICOLE, Internal Medicine Status at Discharge Overall status at discharge: patient is back to baseline Time Spent with Patient Time attestation: Total time spent providing and/or coordinating discharge services: Time spent: Greater than 30 minutes Exam Vital Signs Temp Pulse Resp BP Pulse Ox O2 Del Method O2 Flow Rate 97.1 F 75 18 100/64 92 L Room Air 3 08/29/25 08:00 08/29/25 08:00 08/29/25 08:00 08/29/25 08:00 08/29/25 08:00 08/29/25 08:00 08/28/25 16:00 Narrative Exam General: Patient alert, oriented, in no acute distress. HEENT: Normocephalic, atraumatic. PERRLA, EOMI. Oropharynx clear, mucous membranes moist. Poor dentition. Neck: Supple, trachea midline, no thyromegaly or lymphadenopathy. Cardiac: Regular rate and rhythm, normal S1/S2, no murmurs, rubs, or gallops. Lungs: Normal effort, clear to auscultation bilaterally, no wheezes, rales, or rhonchi. Abdomen: Soft, nondistended. Nontender. Normoactive bowel sounds. No rebound/gaurding. J tube site is clean, dry, intact with no erythema or drainage. Extremities: Warm, well-perfused, no clubbing, cyanosis, or edema. Full range of motion, no joint tenderness. Skin: Warm, dry, intact. No rashes, lesions, or ecchymoses. Neuro: Alert and oriented ?3. Speech fluent. Cranial nerves II?XII grossly intact. Discharge Plan Plan Patient Disposition: Xfer Skilled Nsg Fac (SNF) Care Plan Goals: Continue all medications as prescribed and use bowel regimen with metoclopramide every 6 hours for constipation; avoid using ondansetron when using metoc lopramide Please follow-up with your PCP within 1 week of discharge or follow-up at the [facility] [address] [place] [address] If your symptoms worsen or if you develop fever/chills, chest pain, shortness of breath or severe abdominal pain - please come back to the ED immediately Prescriptions/Referrals Prescriptions/Med Rec: Continued montelukast 10 mg tablet 10 mg feeding tube QDAY Patient Comments: TAKE 1 TABLET VIA J-TUBE IN THE EVENING FOR ALLERIGES. metoclopramide HCl 5 mg/5 mL solution 10 mg PO Q6H Antibiotic (gwawh-jkeyt-bkllt) 3.5mg-400 unit- 5,000 unit/gram ointment 1 applic topical QDAY Rx Instructions: Apply to stoma topically QD for pus to site for 14 days. started 08/22/25 Ending 09/05/2025 acetaminophen 160 mg/5 mL liquid 160 mg PO Q6H PRN (Reason: pain) sennosides [senna] 8.8 mg/5 mL syrup 5 ml PO QDAY pantoprazole 40 mg tablet,delayed release (DR/EC) 40 mg PO Q12H Patient Comments: TAKE 1 TABLET BY MOUTH TWICE DAILY figwyzgyrvte-qrwq-cdhvpqyw Liquid 15 ml PO QDAY Rx Instructions: administer with a meal ferrous sulfate 220 mg (44 mg iron)/5 mL elixir 308 mg PO QDAY fluoxetine 20 mg/5 mL (4 mg/mL) solution 10 mg feeding tube QAM ascorbic acid (vitamin C) 500 mg/5 mL syrup 1 g feeding tube QDAY ondansetron 4 mg tablet,disintegrating 8 mg feeding tube Q8H PRN (Reason: nausea and vomiting) Patient Comments: CRUSH 1 TABLET IN WARM WATER THREE TIMES DAILY NEEDED FOR NAUSEA bisacodyl [Dulcolax (bisacodyl)] 10 mg suppository 10 mg MI Q72H PRN (Reason: constipation) Rx Instructions: IF NO BM X 3DAYS hydroxyzine HCl 10 mg/5 mL solution 12.5 mg feeding tube BID PRN (Reason: anxiety, shortness of breath, scratching, yelling) magnesium hydroxide [Milk of Magnesia] 400 mg/5 mL suspension 30 ml feeding tube Q72H PRN (Reason: constipation) Rx Instructions: As needed for 73 hours no BM calcium carbonate 400 mg/5 mL suspension 400 mg PO Q6HR Rx Instructions: Do not exceed 30mL in 24 hours. Referrals: No Primary/Family,Physician [Primary Care Provider] Patient/Caregiver Discharge Instructions Education Materials: Treating Constipation, Anatomy of the Digestive System Print Language: Syrian Stand Alone Forms: Robyn Award Info., Patient Portal Info Letter Discharge Order Discharge Orders: Discharge (Routine); Ordered 08/29/25 Ordered By: Michael Davies Quality Discharge Quality Measures VTE prophylaxis MD Attestestation MD Attestation I reviewed labs, imaging, EKG, home medications and prior available records. Face to face evaluation was performed by me. I have personally examined the patient and discussed assessment and plan with the IM team. I reviewed the resident note and agree with the plan with exceptions as below. Nausea and vomiting Constipation Acute hypotension, likely secondary to hypovolemia and dehydration SAURAV, improved Metabolic alkalosis Hypokalemia Leukocytosis Management of constipation: Patient had a bowel movement Encourage oral hydration Bisacodyl suppository as needed for constipation Monitor BMP in 1 week WBC is downtrending Time spent is 42 minutes. More than 50% of the time was spent on patient education and coordination of care.
[2025-08-29 12:00] VITALS: BP 164/88; PULSE 81; RESP 18; TEMP 36.3; O2SAT 96
--- NOTE | 2025-08-29 12:05 | PC.NURSE ---
Speech therapy feeding recommendation,and restriction explained to caregiver at bedside. Caregiver verbalizes understanding.
--- NOTE | 2025-08-29 12:25 | PC.SS ---
Pt is from [facility] and will be returning. SS has setup ambulance transportation for 2pm to [facility]. Bedside nurse, Rigoberto is aware. SS has spoken to Lydia from [facility] ([place] who is aware and provided phone# [phone] for report. Caregiver at bedside from [facility] is aware.
== END 2025-08-29 14:10 | disposition skilled nursing facility (03) | DRG 871 ==
LOC: SERX 08-27 05:09 → SERHOLD 08-27 06:14 → S3SX 08-27 08:29
PROVIDERS: Student in an Organized Health Care Education/Training Program; Admitting Provider Internal Medicine; Emergency Provider Emergency Medicine; Visit Provider Student in an Organized Health Care Education/Training Program
DX: A41.9 Sepsis, unspecified organism (principal); J69.0 Pneumonitis due to inhalation of food and vomit; E87.3 Alkalosis; N17.9 Acute kidney failure, unspecified; E87.4 Mixed disorder of acid-base balance; K31.84 Gastroparesis; K59.09 Other constipation; E87.6 Hypokalemia; E87.8 Other disorders of electrolyte and fluid balance, not elsewhere classified; N18.9 Chronic kidney disease, unspecified; D63.1 Anemia in chronic kidney disease; K21.9 Gastro-esophageal reflux disease without esophagitis; K44.9 Diaphragmatic hernia without obstruction or gangrene; K45.8 Other specified abdominal hernia without obstruction or gangrene; Q90.9 Down syndrome, unspecified; I95.9 Hypotension, unspecified; F32.A Depression, unspecified; N32.89 Other specified disorders of bladder; E86.0 Dehydration; R74.01 Elevation of levels of liver transaminase levels; Z93.1 Gastrostomy status
CPT/HCPCS: 36415; 71045; 74176; 80048; 80053; 80307; 81001; 83605; 83690; 83735; 83880; 85025; 85610; 85730; 87040; 87081; 92610; 93005; 96361; 96365; 96366; 96375; 99284; J0696; J2470; J2765; J3480; J7030; J7050; J7120; A9270

== ENCOUNTER → 2025-09-07 | Outpatient (CLI) | payer MEDICARE, OTHER, SELFPAY ==
[2025-09-07 15:09] LABS: Collection Type, Urine Clean Catch
[2025-09-07 15:34] LABS: Bilirubin,Urine Negative (Negative); Blood,Urine Negative (Negative); Clarity,Urine Clear (Clear/Hazy); Color,Urine Yellow (Lt Yel-Yel); Glucose, Urine Negative (Negative); Hyaline Casts,Urine < 1 /hpf (0-1); Ketones,Urine Trace (Negative); Leukocyte Esterase,Urine Negative (Negative); Nitrite,Urine Negative (Negative); PH,Urine 6.0 (5.0-7.0); Protein,Urine Trace (Neg - Trace); RBC,Urine 1 /hpf (0-3); Specific Gravity,Urine 1.031 (1.001-1.035); Squamous Epithelial Cell,Urine 1 /hpf (0-5); Urobilinogen,Urine Negative mg/dL (0.0-1.0); WBC,Urine 3 /hpf (0-5)
== END | disposition home or self-care (01) ==
LOC: SLDO 15:02
PROVIDERS: PCP Hospitalist; Referring Provider Hospitalist; Visit Provider Hospitalist
DX: R30.0 Dysuria (principal)
CPT/HCPCS: 81001; 87077; 87086; 87186

== ENCOUNTER 2025-11-08 12:20 | Emergency (ER) | payer MEDICARE, OTHER, SELFPAY ==
[2025-11-08 12:31] VITALS: PULSE 98; RESP 16; O2SAT 97; BMI 22.3
--- NOTE | 2025-11-08 12:31 | XR_ITS ---
Examination: Abdomen sonogram, Limited Date and time of exam: November 08, 2025, 1330 hours INDICATIONS: Right upper abdominal pain today Technique: Real-time bunch scale transabdominal sonographic images of the upper abdomen obtained. Findings: Bowel gas obscures gallbladder Normal common bile duct Bowel gas obscures pancreas Liver 11.7 cm no liver lesions Normal hepatopetal portal venous flow Patent IVC IMPRESSION: Limited study Normal common bile duct
[2025-11-08 12:37] VITALS: BP 123/85; PULSE 101; RESP 18; TEMP 37; O2SAT 99
[2025-11-08 12:48] LABS: Lactate (Lactic Acid) 1.9 mMol/L (0.4-2.0)
[2025-11-08 12:50] LABS: Basophils # (Auto) 0.0 Thou/mm3 (0.0-0.2); Basophils % (Auto) 0 % (0-2.5); Eosinophils # (Auto) 0.0 Thou/mm3 (0.0-0.5); Eosinophils % (Auto) 0 % (0-10); Hematocrit 38.0 % (36.0-46.0); Hemoglobin 13.1 g/dL (12.0-16.0); Immature Granulocytes Auto 0.04 Thou/mm3 (0.00-0.00); Lymphocytes # (Auto) 1.9 Thou/mm3 (1.0-4.8); Lymphocytes % (Auto) 16 % (10-50); Mean Corpuscular HGB Conc 34.5 g/dl (31.0-37.0); Mean Corpuscular Hemoglobin 30.9 pg (25.0-35.0); Mean Corpuscular Volume 90 fL (80-100); Monocytes # (Auto) 1.1 Thou/mm3 (0.0-0.8); Monocytes % (Auto) 9 % (0-12); Neutrophils # (Auto) 9.2 Thou/mm3 (1.8-7.7); Neutrophils % (Auto) 75 % (37-80); Nucleated Red Blood Cell # 0.00 Thou/mm3 (0.00-0.00); Nucleated Red Blood Cell % 0 /100 WBC (0); Platelet Count 264 Thou/mm3 (140-440); RDW Standard Deviation 38.6 fL (36.4-46.3); Red Blood Count 4.24 Miln/mm3 (4.00-5.20); White Blood Count 12.3 Thou/mm3 (3.6-11.0)
[2025-11-08 13:15] LABS: Alanine Aminotransferase 22 U/L (10-49); Albumin, Serum 4.9 gm/dL (3.5-5.0); Albumin/Globulin Ratio 1.6 (1.2-2.2); Alkaline Phosphatase 87 U/L (46-116); Anion Gap 13 (7-16); Aspartate Amino Transferase 23 U/L (0-34); BUN/Creatinine Ratio 10 Ratio (12-20); Bilirubin,Total 0.3 mg/dL (0.3-1.2); Blood Urea Nitrogen 13 mg/dL (9-23); Calcium 9.9 mg/dL (8.3-10.6); Calcium (Corrected) 9.9 mg/dL (8.5-10.1); Carbon Dioxide 35.0 mMol/L (20.0-31.0); Chloride 93 mMol/L (98-107); Creatinine (Component) 1.3 mg/dL (0.6-1.3); Estimated Creatinine Clearance 46.2 mL/min (>60); Globulin 3.1 gm/dL (2.3-3.5); Glucose 118 mg/dL (74-106); Lipase 57 U/L (12-53); Osmolality,Calculated 282 (275-295); Potassium 3.7 mMol/L (3.4-5.1); Sodium 141 mMol/L (136-145); Total Protein 8.0 gm/dL (5.7-8.2); Troponin I < 0.020 ng/mL (0.0-0.045); eGFR 51 See Note
[2025-11-08] MEDS: MORPHINE SULF INJ 4 MG/ML VIAL IVP (13:19)
[2025-11-08] MEDS: ONDANSETRON ODT 4 MG TABRAP PO (13:20)
--- NOTE | 2025-11-08 15:10 | PD.EDABDPN ---
ED Abdominal Pain RME/HPI General Chief Complaint: Abdominal Pain Stated complaint: ABD PAIN Time seen by provider: 11/08/25 12:24 Arrival date/time: 11/08/25 12:20 Source: patient Mode of arrival: EMS Limitations: other (Patient displays some mild to moderate mental deficits/delay due to her Down's history) RME / HPI RME / HPI narrative: This patient is a stabled 45-year-old female who was brought to our facility from a long-term care facility for evaluation of right upper quadrant pain concerns. Patient states the pain came on and has been relatively unrelenting. Patient describes the pain as sharp and stabbing. Patient denies any history of gallstone concerns or liver issues. Patient does have a history of G-tube placement. Vital signs were stable on arrival. Related Data Home Medications ?Medication ?Instructions ?Recorded ?Confirmed acetaminophen 160 mg/5 mL oral 160 mg PO Q6H PRN pain 08/27/25 08/27/25 liquid ascorbic acid (vitamin C) 500 mg/5 1 g feeding tube QDAY 08/27/25 08/27/25 mL oral syrup bisacodyl 10 mg rectal suppository 10 mg IA Q72H PRN constipation 08/27/25 08/27/25 (Dulcolax (bisacodyl)) calcium carbonate 400 mg/5 mL oral 400 mg PO Q6HR 08/27/25 08/27/25 suspension ferrous sulfate 220 mg (44 mg 308 mg PO QDAY Anemia 08/27/25 08/27/25 iron)/5 mL oral elixir fluoxetine 20 mg/5 mL (4 mg/mL) 10 mg feeding tube QAM 08/27/25 08/27/25 oral solution hydroxyzine HCl 10 mg/5 mL oral 12.5 mg feeding tube BID PRN 08/27/25 08/27/25 solution anxiety, shortness of breath, scratching, yelling magnesium hydroxide 400 mg/5 mL 30 ml feeding tube Q72H PRN 08/27/25 08/27/25 oral suspension (Milk of Magnesia) constipation metoclopramide HCl 5 mg/5 mL oral 10 mg PO Q6H Upset stomach 08/27/25 08/27/25 solution montelukast 10 mg tablet 10 mg feeding tube QDAY Allergies 08/27/25 08/27/25 ptclgutwfjez-qmbt-miqvtfbw 15 ml PO QDAY 08/27/25 08/27/25 neomycin-bacitracn Zn-polymyx 3.5 1 applic topical QDAY 08/27/25 08/27/25 mg-400 unit-5,000 unit/gram top oint (Antibiotic(vgomx-ilvqe-yixqw)) ondansetron 4 mg disintegrating 8 mg feeding tube Q8H PRN nausea 08/27/25 08/27/25 tablet and vomiting pantoprazole 40 mg tablet,delayed 40 mg PO Q12H GERD 08/27/25 08/27/25 release sennosides 8.8 mg/5 mL oral syrup 5 ml PO QDAY Constipation 08/27/25 08/27/25 (senna) Previous Rx's ?Medication ?Instructions ?Recorded dicyclomine 10 mg capsule 10 mg PO QID PRN abdominal pain 11/08/25 #15 caps Allergies Allergy/AdvReac Type Severity Reaction Status Date / Time No Known Allergies Allergy Verified 11/08/25 12:38 Review of Systems Review of Systems Systems Reviewed: All systems reviewed, normal except as documented Past Medical History Past Medical History CARDIAC: Positive Hypertension; Negative Cardiac Disorders, Myocardial Infarction, Cardiac Arrhythmia, Atrial Fibrillation, Angina, Heart Murmur, Coronary Artery Disease, Atherosclerotic Heart Disease, Peripheral Vascular Disease, Hypercholesterolemia, Aneurysm, Congestive Heart Failure, Congenital Heart Disease, Valvular Heart Disease, Rheumatic Fever, Cardiomyopathy, Edema, Pericarditis, Cellulitis, Deep Vein Thrombosis, Hypotension or Varicose Veins RESPIRATORY: Positive Pneumonia; Negative Chronic Obstructive Pulmonary Disease (COPD) GASTROINTESTINAL: Positive Gastrointestinal Disorders (hypertonic pyloric stenosis; gastrostomy malfunction), Gastrointestinal Bleed and Gastroesophageal Reflux Disease (gastroparesis); Negative Cirrhosis, Pancreatitis, Celiac Disease, Gall Bladder Disease, Esophageal Varices, Ann's Esophagus, Colitis, Ulcerative Colitis, Diverticulitis, Diverticulosis, Ulcer, Irritable Bowel, Crohn's Disease, Obstructive Bowel, Hiatal Hernia (diaphragmatic hernia), Hemorrhoids or Obesity (constipation, n/v) GENITOURINARY: Positive Renal Disease; Negative Genitourinary Disorders, Kidney Stones, Polycystic Kidney Disease, Neurogenic Bladder, Dialysis or Benign Prostatic Hyperplasia ENT: Negative Cataracts, Glaucoma, Blind, Retinal Detachment, Macular Degeneration, Ear Infection, Deafness or Eye Prosthesis ENDOCRINE: Negative Endocrine Disorders, Diabetes Mellitus Type 1, Diabetes Mellitus Type 2, Hypoglycemia, Hernesto's Syndrome, Lipscomb's Disease, Hyperthyroidism, Hypothyroidism, Parathyroid Disease, Pituitary Disease, Systemic Lupus Erythematosus, Syndrome of Inappropriate Antidiuretic Hormone (SIADH), Adrenal Disease or Graves' Disease HEMATOLOGIC: Positive Anemia; Negative Blood Disorders, Leukemia, Hemophilia, Thalassemia, Sickle Cell Disease or Clotting Problems PSYCHO/SOCIAL: Positive Depression and Anxiety OTHER HISTORY: Positive Hospitalization and Down Syndrome; Negative Autoimmune Disease Family History FAMILY HISTORY: Negative Family Psychiatric Problems, Family Respiratory Disorders, Family Cardiac Disorders, Family Gastrointestinal Problems, Family Cancer, Family Surgery or Family Anesthesia Reaction Surgical History SURGICAL: Positive Tracheostomy and Gastrostomy; Negative Pacemaker Social History SMOKING STATUS: Never smoker ED Exam General Limitations: Present other (Patient displays some mild to moderate mental deficits/delay due to her Down's history) General appearance: Present alert and other (Moderate distress due to right upper quadrant pain concerns.) Head Head exam: Present atraumatic Eye Eye exam: Present normal appearance, PERRL and EOMI ENT ENT exam: Present normal exam, normal oropharynx and mucous membranes moist Neck Neck exam: Present normal inspection, full ROM and trachea midline Chest Chest inspection: Present normal inspection and symmetric chest wall rise Respiratory Respiratory exam: Present normal lung sounds bilaterally Cardiovascular Cardiovascular exam: Present regular rate, normal rhythm and normal heart sounds Abdominal Exam Abdominal exam: Present other (Diffuse nonspecific right upper quadrant tenderness to palpation throughout. No rebound appreciated. Abdomen was reasonably soft.) Extremities Exam Extremities exam: Present normal inspection and full ROM Back Exam Back exam: Present normal inspection and full ROM Neurological Exam Neurological exam: Present alert, oriented X3 and CN II-XII intact Psychiatric Psychiatric exam: Present normal affect and normal mood Skin Skin exam: Present warm, dry, intact and normal color Course Quality Measures none Orders Category Date Time Status IV [Insert IV] NOW Care 11/08/25 12:31 Active US abdomen limited Stat Exams 11/08/25 12:31 Completed CBC Stat Lab 11/08/25 12:40 Completed CMP [Comprehensive Metabolic Panel] Stat Lab 11/08/25 12:40 Completed Lactate (Lactic Acid) Stat Lab 11/08/25 12:40 Completed Lipase Stat Lab 11/08/25 12:40 Completed Troponin I Stat Lab 11/08/25 12:40 Completed UA [Urinalysis] Stat Lab 11/08/25 12:31 Ordered HYDROcodone/APAP 10/325 [[place] 10/325] Med 1225/25 15:07 Discontinued 1 tab PO X1 ONE Morphine* Inj Med 11/08/25 12:30 Discontinued 4 mg IVP X1 ONE Ondansetron Odt [Zofran Odt] Med 11/08/25 12:30 Discontinued 4 mg PO X1 ONE As noted above Vital Signs Vital signs: Vital Signs Temperature 98.6 F 11/08/25 12:37 Pulse Rate 101 H 11/08/25 12:37 Respiratory Rate 18 11/08/25 12:37 Blood Pressure 123/85 H 11/08/25 12:37 Pulse Oximetry (%) 99 11/08/25 12:37 Oxygen Delivery Method Room Air 11/08/25 12:37 As noted above Abdominal Pain MDM MDM Narrative MDM Narrative:: All studies performed the ED were evaluated by me personally. Serum studies are unremarkable for any systemic concerns. Very mild elevation in lipase levels that were not particular indicative of a pancreatitis event. Right upper quadrant ultrasound was unremarkable for any cholecystitis or common bile duct concerns. No gallbladder wall thickening. Unknown as to the exact cause of the patient's right upper quadrant pain concerns. Patient may be suffering from a viral gastroenteritis. Advised patient utilize medication as needed as well as good hydration and healthy nutrition throughout. Patient data External records reviewed:: [facility] previous records Clinical information provided by:: patient and EMS Social determinants that could affect healthcare access:: none Patient has the following chronic illnesses:: Down syndrome How is presenting disease/condition affected by chronic disease/condition?: uneffected by Evaluation data The following diagnostics were reviewed and interpreted by me:: lab results and radiology exam(s) Lab and/or radiology exams considered but not ordered:: None Interpretation Summary: Unremarkable laboratory and radiology evaluation. Medications / Prescriptions Medications or Prescriptions considered but not ordered:: None Medication administrations:: Medication Administration History Discontinued Medications Hydrocodone Bitart/Acetaminophen (Hydrocodone/Apap 10/325 Tab) 1 tab PO X1 ONE Stop: 11/08/25 15:08 Morphine Sulfate (Morphine Sulf Inj 4 Mg/Ml Vial) 4 mg IVP X1 ONE Stop: 11/08/25 12:31 Last Admin: 11/08/25 13:19 Dose: 4 mg Documented By: DI Ondansetron HCl (Ondansetron Odt 4 Mg Tabrap) 4 mg PO X1 ONE; Protocol Stop: 11/08/25 12:31 Last Admin: 12/25/25 13:20 Dose: 4 mg Documented By: DB As noted above Consultations Consultation(s) initiated? (list below): No Diagnosis Differential diagnosis abdominal pain: abdominal pain, acute appendicitis and other (Cholecystitis, constipation, abdominal pain, gastroenteritis) Most likely diagnosis given after review of the tests above:: Gastroenteritis Admission Indicated Admission indicated?: not indicated Explain why admission is indicated or not indicated:: Unwarranted Admission Request Was there a request for admission?: No Disposition Plan Disposition Plan: Discharge Discharge Attestation Discharge Attestation: The patient and all family members were given an opportunity to ask questions and understood the discharge instructions. Discharge instructions specifically effects, indications for sooner follow up or return to the emergency department, and the expected course of current diagnosis. Patient condition: Stable Discharge Plan Plan Patient Disposition: Xfer Skilled Nsg Fac (SNF) Prescriptions/Referrals Prescriptions/Med Rec: New dicyclomine 10 mg capsule 10 mg PO QID PRN (Reason: abdominal pain) Qty: 15 0RF No Action montelukast 10 mg tablet 10 mg feeding tube QDAY Patient Comments: TAKE 1 TABLET VIA J-TUBE IN THE EVENING FOR ALLERIGES. metoclopramide HCl 5 mg/5 mL solution 10 mg PO Q6H Antibiotic (tyucd-orqaj-gepzn) 3.5mg-400 unit- 5,000 unit/gram ointment 1 applic topical QDAY Rx Instructions: Apply to stoma topically QD for pus to site for 14 days. started 08/22/25 Ending 09/05/2025 acetaminophen 160 mg/5 mL liquid 160 mg PO Q6H PRN (Reason: pain) sennosides [senna] 8.8 mg/5 mL syrup 5 ml PO QDAY pantoprazole 40 mg tablet,delayed release (DR/EC) 40 mg PO Q12H Patient Comments: TAKE 1 TABLET BY MOUTH TWICE DAILY kzkmvbfzkscf-xzvt-yarwwmvj Liquid 15 ml PO QDAY Rx Instructions: administer with a meal ferrous sulfate 220 mg (44 mg iron)/5 mL elixir 308 mg PO QDAY fluoxetine 20 mg/5 mL (4 mg/mL) solution 10 mg feeding tube QAM ascorbic acid (vitamin C) 500 mg/5 mL syrup 1 g feeding tube QDAY ondansetron 4 mg tablet,disintegrating 8 mg feeding tube Q8H PRN (Reason: nausea and vomiting) Patient Comments: CRUSH 1 TABLET IN WARM WATER THREE TIMES DAILY NEEDED FOR NAUSEA bisacodyl [Dulcolax (bisacodyl)] 10 mg suppository 10 mg IA Q72H PRN (Reason: constipation) Rx Instructions: IF NO BM X 3DAYS hydroxyzine HCl 10 mg/5 mL solution 12.5 mg feeding tube BID PRN (Reason: anxiety, shortness of breath, scratching, yelling) magnesium hydroxide [Milk of Magnesia] 400 mg/5 mL suspension 30 ml feeding tube Q72H PRN (Reason: constipation) Rx Instructions: As needed for 73 hours no BM calcium carbonate 400 mg/5 mL suspension 400 mg PO Q6HR Rx Instructions: Do not exceed 30mL in 24 hours. Problem List Clinical Impression: Gastroenteritis Patient/Caregiver Discharge Instructions Education Materials: ED Gastroenteritis, Noninfectious Additional Instructions: Advise utilizing medication as needed for symptomatic relief. Good hydration and healthy nutrition advised. Print Language: Dutch Stand Alone Forms: Robyn Award Info., Patient Portal Info Letter
[2025-11-08 15:52] VITALS: BP 105/72; PULSE 100; RESP 16; O2SAT 96
[2025-11-08 17:05] VITALS: BP 124/100; PULSE 108; RESP 13; TEMP 36.8; O2SAT 95
[2025-11-08 17:08] LABS: Collection Type, Urine Clean Catch
[2025-11-08 17:17] LABS: Bacteria,Urine 3+; Bilirubin,Urine Negative (Negative); Blood,Urine 2+ (Negative); Color,Urine Yellow (Lt Yel-Yel); Glucose, Urine Negative (Negative); Ketones,Urine Trace (Negative); Leukocyte Esterase,Urine Positive (Negative); Nitrite,Urine Negative (Negative); PH,Urine 8.5 (5.0-7.0); Protein,Urine 2+ (Neg - Trace); RBC,Urine 54 /hpf (0-3); Specific Gravity,Urine 1.024 (1.001-1.035); Squamous Epithelial Cell,Urine 2 /hpf (0-5); Urobilinogen,Urine 3.0 mg/dL (0.0-1.0); WBC,Urine 16 /hpf (0-5)
[2025-11-08 17:19] LABS: Clarity,Urine Hazy (Clear/Hazy)
[2025-11-08 18:00] VITALS: BP 123/84; PULSE 106; RESP 17; TEMP 36.8; O2SAT 95
[2025-11-08 19:21] VITALS: BP 132/90; PULSE 108; RESP 16; TEMP 36.9; O2SAT 96
== END 2025-11-08 19:37 | disposition skilled nursing facility (03) ==
PROVIDERS: Physician Assistant; Emergency Provider Family Medicine; PCP Hospitalist
DX: K52.9 Noninfective gastroenteritis and colitis, unspecified (principal); Z93.1 Gastrostomy status
CPT/HCPCS: 36415; 76705; 80053; 81001; 83605; 83690; 84484; 85025; 96374; 99283; J2270; Q0162; A9270

== ENCOUNTER 2025-11-13 03:26 | Emergency (ER) | payer MEDICARE, MEDICAID, SELFPAY ==
[2025-11-13 03:30] VITALS: PULSE 82; RESP 18; O2SAT 98; BMI 22.6
[2025-11-13 03:45] VITALS: BP 96/70; PULSE 90; RESP 18; TEMP 36.7; O2SAT 97
--- NOTE | 2025-11-13 03:46 | PD.EDADULT ---
ED General RME/HPI General Chief complaint: General Adult/Misc Complain Stated complaint: MISLODGED G TUBE Time Seen by Provider: 11/13/25 03:46 Arrival date/time: 11/13/25 03:26 RME / HPI RME / HPI narrative: Dr. Rasmussen?s Main ED Evaluation: 45yo female with a history of gastroparesis, diaphragmatic hernia, GERD, CKD, anemia of chronic disease, depression, Down syndrome, and G/J-tube dependence MADY from [facility] presents to the ED due to her G/J- tube being pulled out. SNF staff at bedside states he was doing rounds when he found the patient's G/J- tube pulled out more than normal. Patient endorses having abdominal pain. Denies any other associated symptoms. NKA. Related Data Home Medications ?Medication ?Instructions ?Recorded ?Confirmed acetaminophen 160 mg/5 mL oral 160 mg PO Q6H PRN pain 08/27/25 08/27/25 liquid ascorbic acid (vitamin C) 500 mg/5 1 g feeding tube QDAY 08/27/25 08/27/25 mL oral syrup bisacodyl 10 mg rectal suppository [address] Q72H PRN constipation 08/27/25 08/27/25 (Dulcolax (bisacodyl)) calcium carbonate 400 mg/5 mL oral 400 mg PO Q6HR 08/27/25 08/27/25 suspension ferrous sulfate 220 mg (44 mg 308 mg PO QDAY Anemia 08/27/25 08/27/25 iron)/5 mL oral elixir fluoxetine 20 mg/5 mL (4 mg/mL) 10 mg feeding tube QAM 08/27/25 08/27/25 oral solution hydroxyzine HCl 10 mg/5 mL oral 12.5 mg feeding tube BID PRN 08/27/25 08/27/25 solution anxiety, shortness of breath, scratching, yelling magnesium hydroxide 400 mg/5 mL 30 ml feeding tube Q72H PRN 08/27/25 08/27/25 oral suspension (Milk of Magnesia) constipation metoclopramide HCl 5 mg/5 mL oral 10 mg PO Q6H Upset stomach 08/27/25 08/27/25 solution montelukast 10 mg tablet 10 mg feeding tube QDAY Allergies 08/27/25 08/27/25 gusktbedyysc-nzyf-fewqihfw 15 ml PO QDAY 08/27/25 08/27/25 neomycin-bacitracn Zn-polymyx 3.5 1 applic topical QDAY 08/27/25 08/27/25 mg-400 unit-5,000 unit/gram top oint (Antibiotic(vhbca-tyzmq-twtbl)) ondansetron 4 mg disintegrating 8 mg feeding tube Q8H PRN nausea 08/27/25 08/27/25 tablet and vomiting pantoprazole 40 mg tablet,delayed 40 mg PO Q12H GERD 08/27/25 08/27/25 release sennosides 8.8 mg/5 mL oral syrup 5 ml PO QDAY Constipation 08/27/25 08/27/25 (senna) Previous Rx's ?Medication ?Instructions ?Recorded dicyclomine 10 mg capsule 10 mg PO QID PRN abdominal pain 11/08/25 #15 caps Allergies Allergy/AdvReac Type Severity Reaction Status Date / Time No Known Allergies Allergy Verified 11/13/25 03:29 Review of Systems Review of Systems Systems Reviewed: All systems reviewed, normal except as documented ED Exam Narrative Physical exam: Generally patient is alert chronically ill-appearing and mentally delayed, heart regular rate and rhythm, lungs clear to auscultation equal bilaterally, shows a GJ tube to be in place but possibly pulled out approximately 10 inches. Abdomen is diffusely tender and tympanic without rebound. Neurologic exam shows patient to be verbal and obey commands without focal motor deficit, skin is warm pale and dry Course Quality Measures none Orders Category Date Time Status KUB [XR abdomen 1V] Stat Exams 11/13/25 04:01 Taken CBC Stat Lab 11/13/25 04:48 Ordered CMP [Comprehensive Metabolic Panel] Stat Lab 11/13/25 04:48 Ordered Vital Signs Vital signs: Vital Signs Temperature 98.1 F 11/13/25 03:45 Pulse Rate 90 11/13/25 03:45 Respiratory Rate 18 11/13/25 03:45 Blood Pressure 96/70 11/13/25 03:45 Pulse Oximetry (%) 97 11/13/25 03:45 Oxygen Delivery Method Room Air 11/13/25 03:45 Discharge Plan Prescriptions/Referrals Prescriptions/Med Rec: No Action montelukast 10 mg tablet 10 mg feeding tube QDAY Patient Comments: TAKE 1 TABLET VIA J-TUBE IN THE EVENING FOR ALLERIGES. metoclopramide HCl 5 mg/5 mL solution 10 mg PO Q6H Antibiotic (mnxbj-qjfqw-rgzdh) 3.5mg-400 unit- 5,000 unit/gram ointment 1 applic topical QDAY Rx Instructions: Apply to stoma topically QD for pus to site for 14 days. started 08/22/25 Ending 09/05/2025 acetaminophen 160 mg/5 mL liquid 160 mg PO Q6H PRN (Reason: pain) sennosides [senna] 8.8 mg/5 mL syrup 5 ml PO QDAY pantoprazole 40 mg tablet,delayed release (DR/EC) 40 mg PO Q12H Patient Comments: TAKE 1 TABLET BY MOUTH TWICE DAILY vvydvwqmmknn-onqz-tljdsvad Liquid 15 ml PO QDAY Rx Instructions: administer with a meal ferrous sulfate 220 mg (44 mg iron)/5 mL elixir 308 mg PO QDAY fluoxetine 20 mg/5 mL (4 mg/mL) solution 10 mg feeding tube QAM ascorbic acid (vitamin C) 500 mg/5 mL syrup 1 g feeding tube QDAY ondansetron 4 mg tablet,disintegrating 8 mg feeding tube Q8H PRN (Reason: nausea and vomiting) Patient Comments: CRUSH 1 TABLET IN WARM WATER THREE TIMES DAILY NEEDED FOR NAUSEA bisacodyl [Dulcolax (bisacodyl)] 10 mg suppository [address] Q72H PRN (Reason: constipation) Rx Instructions: IF NO BM X 3DAYS hydroxyzine HCl 10 mg/5 mL solution 12.5 mg feeding tube BID PRN (Reason: anxiety, shortness of breath, scratching, yelling) magnesium hydroxide [Milk of Magnesia] 400 mg/5 mL suspension 30 ml feeding tube Q72H PRN (Reason: constipation) Rx Instructions: As needed for 73 hours no BM calcium carbonate 400 mg/5 mL suspension 400 mg PO Q6HR Rx Instructions: Do not exceed 30mL in 24 hours. dicyclomine 10 mg capsule 10 mg PO QID PRN (Reason: abdominal pain) Qty: 15 0RF Referrals: Octavia Serna MD [Primary Care Provider] - In 1 week Problem List Clinical Impression: Encounter for imaging study to confirm gastrojejunal (GJ) tube placement Patient/Caregiver Discharge Instructions Print Language: Russian MDM Narrative MDM hospital course (for use when minimal MDM required): Scribe Attestation: 11/13/25 Radha Garcia am scribing for and in the presence of Dr. Rasmussen. The GJ tube apparently was pulled out approximately 8 inches or so. It was reintroduced into the abdomen. An attempt to push Gastrografin through the jejunal port showed it to be difficult to push but some still went through the tube with inconclusive placement of the tube. This patient originally had this GJ tube placed at [facility] which is where the patient's conservator wishes the patient to go for replacement of this tube. When this patient dislodged the tube back in November of this year we could not replace the tube. Because we did not have the proper equipment. We will initiate attempted transfer to [facility] due to displacement and malfunction of the GJ tube. Baseline labs will be obtained. Clinical Information Other: SNF staff Medical Records reviewed [facility] (Per chart review, patient was seen here on 11/08/25 for gastroenteritis.) Meds/Rx considered, not ordered None Labs/Rad/Tests considered, not ordered None Chronic Illness/Social Conditions Explain: Hx gastroparesis, diaphragmatic hernia, GERD, CKD, anemia of chronic disease, depression, Down syndrome, and G/J-tube dependence Labs Labs: interpreted by me Imaging Imaging interpretation: interpreted by me Medication Administration(s) none Diagnosis Differential Diagnosis ED Complaint MDM: See MDM
--- NOTE | 2025-11-13 04:01 | XR_ITS ---
Examination: Abdomen AP single view Technique: AP portable supine abdomen, single view Exam date and time: November 13, 2025, 0438 hours INDICATIONS: Unknown position gastrostomy tube FINDINGS: The films are not centered There is opacification of the gastrostomy tube but no opacification of the stomach. The gastrostomy tube overlies the stomach IMPRESSION: Repeat the study with proper opacification of the gastrostomy tube and the stomach
--- NOTE | 2025-11-13 04:21 | PC.NURSE ---
SPOKE TO MIRTA AT [facility] IN REGARDS TO PT. PER MIRTA, HE HAS REQUESTED FOR PT TO GO TO [facility] BECAUSE SHE HAS SEES A GI SPECIALIST. PTS SISTER RAUL ROMERO CALLED THIS RN ABOUT PT CONDITION. PT'S SISTER WAS MADE AWARE OF A POSSIBLE GTUBE DISLODGMENT. RAUL WAS ADVISED ABOUT KUB XRAY AND RAUL AGREED. PER RAUL, SHE STATES THAT SHE MAKES ALL MEDICAL DECISIONS OF PT. RAUL DOES NOT WANT US TO MANIPULATE, REMOVE, OR REPLACE GTUBE. RAUL WANTS US TO TRANSFER PT TO [facility] FOR ANY PROCEDURES INVOLVING THE GTUBE. THIS RN SPOKE TO MIRTA AT [facility] REQUESTING A POWER OF VACUUM DRUM DRIER OPERATOR. PER MIRTA, HE WILL FIND THE CORRECT DOCUMENTATION THAT STATES THAT RAUL MAKES ALL MEDICAL DECISIONS FOR PATIENT. PT WAS UPDATED ON SITUTION AND AGREED THAT RAUL MAKES ALL HER MEDICAL DECISIONS. DR. CAVAZOS WAS UPDATED ABOUT SITUATION. CHARGE NURSE WAS MADE AWARE
--- NOTE | 2025-11-13 04:41 | PC.NURSE ---
WASNT SUCCESSFUL INJECTING GASTROGRAFIN. DR. CAVAZOS WAS MADE AWARE AND ATTEMPTED TO INJECT THE WAS NOT SUCCESS. HE STILL REQUESTED FOR THE LOGISTICS ENGINEERING MANAGER TO TAKE THE XRAY
[2025-11-13 05:13] LABS: Basophils # (Auto) 0.0 Thou/mm3 (0.0-0.2); Basophils % (Auto) 0 % (0-2.5); Eosinophils # (Auto) 0.1 Thou/mm3 (0.0-0.5); Eosinophils % (Auto) 1 % (0-10); Hematocrit 36.2 % (36.0-46.0); Hemoglobin 12.8 g/dL (12.0-16.0); Immature Granulocytes Auto 0.04 Thou/mm3 (0.00-0.00); Lymphocytes # (Auto) 2.7 Thou/mm3 (1.0-4.8); Lymphocytes % (Auto) 20 % (10-50); Mean Corpuscular HGB Conc 35.4 g/dl (31.0-37.0); Mean Corpuscular Hemoglobin 31.3 pg (25.0-35.0); Mean Corpuscular Volume 89 fL (80-100); Monocytes # (Auto) 1.1 Thou/mm3 (0.0-0.8); Monocytes % (Auto) 8 % (0-12); Neutrophils # (Auto) 9.7 Thou/mm3 (1.8-7.7); Neutrophils % (Auto) 71 % (37-80); Nucleated Red Blood Cell # 0.00 Thou/mm3 (0.00-0.00); Nucleated Red Blood Cell % 0 /100 WBC (0); Platelet Count 291 Thou/mm3 (140-440); RDW Standard Deviation 37.4 fL (36.4-46.3); Red Blood Count 4.09 Miln/mm3 (4.00-5.20); White Blood Count 13.6 Thou/mm3 (3.6-11.0)
[2025-11-13 05:34] LABS: Alanine Aminotransferase 10 U/L (10-49); Albumin, Serum 4.5 gm/dL (3.5-5.0); Albumin/Globulin Ratio 1.5 (1.2-2.2); Alkaline Phosphatase 88 U/L (46-116); Aspartate Amino Transferase 19 U/L (0-34); BUN/Creatinine Ratio 17 Ratio (12-20); Bilirubin,Total 0.2 mg/dL (0.3-1.2); Blood Urea Nitrogen 20 mg/dL (9-23); Calcium 9.5 mg/dL (8.3-10.6); Calcium (Corrected) 9.5 mg/dL (8.5-10.1); Chloride 81 mMol/L (98-107); Creatinine (Component) 1.2 mg/dL (0.6-1.3); Estimated Creatinine Clearance 43.7 mL/min (>60); Globulin 3.0 gm/dL (2.3-3.5); Glucose 107 mg/dL (74-106); Osmolality,Calculated 267 (275-295); Potassium 3.0 mMol/L (3.4-5.1); Sodium 132 mMol/L (136-145); Total Protein 7.5 gm/dL (5.7-8.2); eGFR 56 See Note
[2025-11-13 06:03] LABS: Anion Gap 11 (7-16); Carbon Dioxide > 40.0 mMol/L (20.0-31.0)
[2025-11-13 06:12] VITALS: BP 108/79; PULSE 85; RESP 18; TEMP 37.1; O2SAT 100
--- NOTE | 2025-11-13 06:13 | PC.NURSE ---
INITIATED TRANSFER WITH SCIENTOLOGIST FOR GI DUE TO G/J TUBE DISPLACED. CLINICALS FAXED. SPOKE TO SHILPA AT TRANSFER CENTER STATED THEY WOULD PRESENT THE CASE AND ASKED FOR MD CAVAZOS ON THE PHONE FOR [employer] QUESTIONS.
--- NOTE | 2025-11-13 09:56 | PD.EDADDENDU ---
Emergency Room Addendum Addendum Narrative: 0600: Care assumed from Dr. Rasmussen, the previous shift emergency physician. Past medical, surgical, social and family history reviewed. Vitals and home medications reviewed. I will assume the care of the patient at this time, pending transfer to [facility] for replacement of the G/J-tube. Please refer to the emergency department record for history and examination from initial visit.?The following addendum documentation note is intended to reflect any pending information, findings, or radiology results not included in the patient?s initial chart. 0721: I spoke with GI specialist at [facility]. Discussed patients PMHx, HPI, ED course, exam findings, labs, and radiology results. State they do not do G/J-tube. 0730: I spoke with our GI Dr. Stephens. Discussed patients PMHx, HPI, ED course, exam findings, labs, and radiology results. States he does not do G/J-tube replacement and recommends transferring the patient. 0953: I spoke with [facility] in [place]. They report the G/J-tube can be replaced by our interventional radiologist or general surgeon. 0955: I spoke with our surgeon on-call Dr. Oliveira. States she does not replace G/J-tubes. Advised we consult with surgeon Dr. Garcia as he may possibly be able to. 0958: I spoke with surgeon Dr. Garcia. States he does not replace G/J-tubes and that our interventional radiologist isn't able to either. Reports the interventional radiologist in [place] is able to replace G/J-tubes and advised we contact them. 1002: I spoke with our transfer nurse who will contact [facility]. 1525: I spoke with [facility] transfer nurse. Discussed patients PMHx, HPI, ED course, exam findings, labs, and radiology results. Reports they are pending the full patient chart to be transferred. Will present the case to their GI team and call back. 1630: The caregiver at bedside reports the patient is able to tolerate small amount of pureed food at night. At this time, the patient complains of very mild pain near the tube. States the pain today has improved compared to last night. 1710: I spoke with GI Dr. Richmond at [facility]. Discussed patients PMHx, HPI, ED course, exam findings, labs, and radiology results. He accepts the patient for transfer.
--- NOTE | 2025-11-13 10:14 | PC.CC ---
Addendum entered by Anahy Amos RN 11/13/25 12:31: Spoke with Wilma at [facility] TC at 1145 to get update regarding IR in [place], was placed on hold for 28 min called back at 1220. Wilma spoke with Joaquin in the TC, he informed her that he left a message with Lizbeth Morse in IR but have not received a call back so Joaquin informed Wilma that he would reach out to him again and call us back. Original Note: Called [facility] and spoke with Missael. Asked missael if they reached out to IR @ [facility], she informed me they had not. She will have their transfer center reach out to [facility] IR to see if they are able to place the GJ tube.
--- NOTE | 2025-11-13 15:07 | PC.CC ---
Krishan spoke with Zoila in the transfer center at [facility]. Sent over packet, she is requesting recent vitals and asked to push over images through synapse. Images sent. Spoke with ED nurse to input recent vitals.
[2025-11-13 15:10] VITALS: BP 98/68; PULSE 86; RESP 16; TEMP 36.7; O2SAT 98
--- NOTE | 2025-11-13 15:26 | PC.CC ---
Addendum entered by Anahy Amos, RN 11/13/25 19:13: 1608 received call from Zoila at [facility] TC, she is asking to speak with Dr. Stern. Informed her I was on another conference call and would call her back. 1703 Called [facility] to speak with Zoila, transferred call to Dr. Stern. During the conversation with Dr. Leena Cummings the TCN put Charles Mccormick to speak with Dr. Stern. Dr. Martnis accepted pt ED to ED. Report to [phone]. Packet given to charge nurse with 1 CD enclosed. ETA 1999 Original Note: 1520 [facility] and spoke with Zoila and gave her recent vitals. AT 1525 Zoila from [facility] called to speak with Dr. Stern, transferred call to him.
[2025-11-13] MEDS: ACETAMINOPHEN IVPB 1,000 MG/100 ML VIAL 250 MG IV (17:31)
[2025-11-13] MEDS: POTASSIUM CHL 10 mEq IVPB 10 MEQ/100 ML BAG 100 MEQ IV ×2 (17:32→18:06)
[2025-11-13] MEDS: FAMOTIDINE INJ 10 MG/ML VIAL 2 ML 20 MG IVP (17:33)
[2025-11-13] MEDS: SODIUM CHLORIDE 0.9% 500 ML 500 ML 999 ML IV (17:36)
[2025-11-13 19:17] VITALS: BP 100/72; PULSE 80; RESP 18; TEMP 36.8; O2SAT 100
== END 2025-11-13 19:48 | disposition short-term general hospital (02) ==
PROVIDERS: Emergency Medicine; Emergency Provider Family Medicine; PCP Hospitalist
DX: Z46.59 Encounter for fitting and adjustment of other gastrointestinal appliance and device (principal); Z75.1 Person awaiting admission to adequate facility elsewhere
CPT/HCPCS: 36415; 74018; 80053; 85025; 96361; 96365; 96375; 99284; J0131; J3480; J3490; J7999; Q9963